=== PATIENT | female | born 1955 | race Caucasian/White ===

== ENCOUNTER 2022-01-10 08:37 | Outpatient (CLI) | payer BC, SELFPAY ==
--- NOTE | ~2022-01-10 | MM_ITS ---
EXAMINATION: MM screening ian BI w ange HISTORY: Screening TECHNIQUE: Craniocaudal and mediolateral oblique 3-D tomosynthesis images were obtained and synthetic 2-D images were generated. CAD analysis was submitted and interpreted. COMPARISON: No prior mammogram is available for comparison at this institution. BREAST PARENCHYMAL COMPOSITION: There are scattered areas of fibroglandular density. FINDINGS: There is a focal asymmetry laterally in the left breast on CC view, not recognized on MLO v iew. There are no suspicious masses, calcifications or architectural distortion in the right breast t o suggest malignancy. IMPRESSION: 1. Focal asymmetry of the left breast laterally on CC view. 2. Additional mammographic views and possible breast ultrasound are recommended. BI-RADS Category 0: Incomplete: Needs additional imaging evaluation. Reviewed, dictated and finalized at location A. IMPRESSION: 1. Focal asymmetry of the left breast laterally on CC view. 2. Additional mammographic views and possible breast ultrasound are recommended . BI-RADS Category 0: Incomplete: Needs additional imaging evaluation.
== END 2022-01-10 08:38 | disposition home or self-care (01) ==
PROVIDERS: PCP Internal Medicine; Visit Provider Internal Medicine
DX: Z12.31 Encounter for screening mammogram for malignant neoplasm of breast (principal); R92.8 Other abnormal and inconclusive findings on diagnostic imaging of breast
CPT/HCPCS: 77063; 77067

== ENCOUNTER 2022-07-03 12:31 | Outpatient (CLI) | payer MEDICARE, BC, OTHER, SELFPAY ==
--- NOTE | ~2022-07-03 | XR_ITS ---
AP and lateral views of the right hip Clinical history: Pain Findings: No acute fracture or dislocation is seen. Osseous alignment is anatomic. Right hip joint sp cal is preserved. Right SI joint unremarkable. Soft tissues are unremarkable. Impression: No significant abnormality is seen. Reviewed, dictated and finalized at [facility]. [employer]BILE [employer]IM INST[employer]ER Impression: No significant abnormality is seen.
== END 2022-07-03 12:32 | disposition home or self-care (01) ==
PROVIDERS: PCP Internal Medicine; Visit Provider Internal Medicine
DX: M25.551 Pain in right hip (principal)
CPT/HCPCS: 73502

== ENCOUNTER 2022-08-08 13:23 | Outpatient (RCR) | payer MEDICARE, OTHER, SELFPAY ==
--- NOTE | 2022-08-08 15:15 | PTOPEVDC ---
Assessment and note entered by Migue Singh, PT Thank you for referring Cary Salvador to [facility].? An evaluation has been completed. No further treatment is needed. Evaluation Information Diagnosis Sciatica R side Onset 07/01/22 Subjective Information Patient reports waking up the day after Valeria last year and once rolling out of bed, being in immediate pain starting in the back and going down to the RLE. She was originally only able to get around in a wheelchair, but now is using a cane. She has received an X-ray of her hip and has a CT scheduled for her lumbar region tomorrow. ( Patient unable to do an MRI secondary to a pacemaker). The patient reports the doctor 2 rounds of muscle relaxers and 2 rounds of steroids without any significant change. Patient unable to sleep flat and now sleeps in a recliner although the back will still not let her sleep throughout the night. Along with pain she has numbness/tingling and weakness in the RLE all the way down to her toes. She uses IBU along with a heating pad for pain relief which is minimal. Patient reports unable to do much of anything without significant pain. Reported Pain Level Pain Score 6: Self Report Additional Pain Score Comments 10/10 at worst. Minimal relief Assessment PT Clinical Summary Cary is a 67 year old coming into the clinic for severe R sciatic pain along with back pain. At the time of evaluation patient appears to still be in a very acute stage of pain, with minimal pain relief from modalities and physical therapist unable to accomplish a full therapy evaluation. Patient made the recommendation to the patient to go to the CT scan and possibly injections or a chiropractic manipulation based on the results of the imaging. If patient's pain can diminish recommend another script for physical therapy, but at this time physical therapy's risk do not outweigh potential benefits based on limited ability to do exercises, manual therapy, or manual therapy. Not picked up for skilled physical therapy. Plan of Care PT Services Indicated No Treatment Frequency and not picked up for skilled physical therapy. Duration
== END 2022-10-22 11:23 | disposition home or self-care (01) ==
LOC: ANHPT 13:23
PROVIDERS: Visit Provider Internal Medicine
DX: M54.31 Sciatica, right side (principal)
CPT/HCPCS: 97140; 97161

== ENCOUNTER → 2022-08-09 12:13 | Outpatient (CLI) | payer MEDICARE, OTHER, SELFPAY ==
--- NOTE | ~2022-08-09 | CT_ITS ---
EXAMINATION: CT lumbar spine wo con DATE: 08/09/2022 12:46 INDICATION: Low back pain. Sciatica. TECHNIQUE: Computed tomography (CT) of the lumbar spine was performed without intravenous contrast. A utomated exposure control and iterative reconstruction technique were employed. The dose-length produ ct was 1059.14 mGy-cm. COMPARISON: None FINDINGS: There is 5 degrees dextrocurvature of thoracolumbar spine. Vertebral body heights are arslan l. There is mildly decreased disc height at L4-L5. The following disc levels are specifically discuss ed: L1-L2: The disc does not extend beyond the endplate margin. There is mild bilateral facet joint osteo arthritis. There is no neural foraminal stenosis. There is no central canal stenosis. L2-L3: The disc is bulging. There is mild bilateral facet joint osteoarthritis. There is mild bilater al neural foraminal stenosis. There is no central canal stenosis. L3-L4: The disc is bulging. There is mild bilateral facet joint osteoarthritis. There is mild bilater al neural foraminal stenosis. There is mild central canal stenosis. L4-L5: The disc is bulging with superimposed right subarticular zone extrusion. There is severe bilat eral facet joint osteoarthritis. There is mild right and moderate left neural foraminal stenosis. The re is mild central canal stenosis at the midline. There is severe stenosis of right lateral recess. L5-S1: The disc is bulging. There is severe bilateral facet joint osteoarthritis. There is mild bilat eral neural foraminal stenosis. There is no central canal stenosis. IMPRESSION: 1. Moderate spondylosis at L4-L5 and mild spondylosis at other levels. Reviewed, dictated and finalized at location A. WASHER
== END ==
PROVIDERS: PCP Internal Medicine; Visit Provider Internal Medicine
DX: M54.31 Sciatica, right side (principal); M47.816 Spondylosis without myelopathy or radiculopathy, lumbar region
CPT/HCPCS: 72131

== ENCOUNTER 2023-04-29 11:43 | Outpatient (CLI) | payer MEDICARE, OTHER, SELFPAY ==
--- NOTE | ~2023-04-29 | XR_ITS ---
XR wrist RT min 3V DATE: 04/29/2023 12:09 INDICATION: Right wrist pain TECHNIQUE: 4 views COMPARISON: None FINDINGS: There is joint space narrowing at the triscaphe joint and mild spurring at the first carpom etacarpal joint consistent with osteoarthritis at these 2 joints. There is mild osteoarthritis at the second metacarpophalangeal joint. No fracture or dislocation, periosteal reaction or bone destruction is detected. IMPRESSION: Osteoarthritis Reviewed, dictated and finalized at location A. IMPRESSION: Osteoarthritis
== END 2023-04-29 11:44 | disposition home or self-care (01) ==
PROVIDERS: PCP Internal Medicine; Visit Provider Internal Medicine
DX: M19.031 Primary osteoarthritis, right wrist (principal)
CPT/HCPCS: 73110

== ENCOUNTER 2023-08-18 09:18 | Outpatient (CLI) | payer MEDICARE, OTHER, SELFPAY ==
--- NOTE | ~2023-08-18 | MM_ITS ---
EXAMINATION: MM screening ian BI w ange HISTORY: Screening mammogram, family history of breast cancer in her sister. TECHNIQUE: Craniocaudal and mediolateral oblique 3-D tomosynthesis images were obtained and synthetic 2-D images were generated. CAD analysis was submitted and interpreted. COMPARISON: 01/10/2022, 06/06/2020, 04/16/2018 BREAST PARENCHYMAL COMPOSITION: There are scattered areas of fibroglandular density. FINDINGS: Scattered benign-appearing calcifications are present. No suspicious mass, calcification, o r architectural distortion are identified in either breast to suggest malignancy. There has been no s uspicious interval change. IMPRESSION: 1. No mammographic evidence of malignancy. 2. Recommend routine screening mammography in one year. BI-RADS Category 2: Benign finding(s). Reviewed, dictated and finalized at location A. [employer]
== END 2023-08-18 09:19 | disposition home or self-care (01) ==
LOC: ANHIMG 09:20
PROVIDERS: PCP Internal Medicine; Visit Provider Internal Medicine
DX: Z12.31 Encounter for screening mammogram for malignant neoplasm of breast (principal)
CPT/HCPCS: 77063; 77067

== ENCOUNTER 2023-11-07 10:17 | Outpatient (CLI) | payer MEDICARE, OTHER, SELFPAY ==
--- NOTE | 2023-11-11 11:10 | P.NEURO_ITS ---
Neurology EEG Report General Information Date of Study: 11/07/23 TEST eeg DIAGNOSIS syncope and collapse CONDITION OF RECORDING awake drowsy and sleep EEG NUMBER [id number] CLINICAL HISTORY patient reports she has had episodes of blacking out for years, got a pacemaker placed in about 30 years ago and it cut back on the episodes. But now she is having recurrent episodes about once a month. EEG DESCRIPTION Basic resting occipital frequency consists of low to medium voltage 8 to 10 hertz per 2nd alpha admixed with low-voltage 15 to 18 hertz per 2nd beta. Low- voltage beta activity seen intermittently during drowsiness admixed with waxing and waning posterior alpha rhythm. Bilateral symmetrical sleep activity seen with initial mixture of the alpha beta and theta activity evolving into bilateral symmetrical sleep spindles as well photic stimulation produced normal drive. Hyperventilation not done. Non paroxysmal. Nonfocal. Nonlateralizing. IMPRESSION Normal record.
== END 2023-11-07 10:18 | disposition home or self-care (01) ==
LOC: ANHNEURO 10:17
PROVIDERS: PCP Internal Medicine; Visit Provider Internal Medicine
DX: R55 Syncope and collapse (principal)
CPT/HCPCS: 95816

== ENCOUNTER 2024-11-18 09:44 | Outpatient (CLI) | payer MEDICARE, OTHER, SELFPAY ==
--- NOTE | ~2024-11-18 | XR_ITS ---
Lumbosacral Spine: AP and lateral views Clinical History: Pain Findings: The normal lordotic curve is maintained. The vertebral bodies and posterior elements are i ntact. The intervertebral disc spaces are preserved. There is moderate to advanced facet arthropathy from L4 through S1. The sacroiliac joints are normally outlined. Impression: Facet arthropathy at the lower lumbar spine, as detailed above. Reviewed, dictated and finalized at location . Impression: Facet arthropathy at the lower lumbar spine, as detailed above.
--- NOTE | ~2024-11-18 | XR_ITS ---
AP view of the pelvis and AP and lateral views of the left hip Clinical history: Pain Findings: No acute fracture or dislocation is seen. Osseous alignment is anatomic. Bilateral hip and SI joint spaces are preserved. Soft tissues are unremarkable. Impression: No significant abnormality is seen. Reviewed, dictated and finalized at [facility]. Impression: No significant abnormality is seen.
--- OUTSIDE RECORDS SUMMARY | 2024-11-18 09:53 | XMS_ITS | Clinical Summary ---
Author Organization [facility] Care Team Providers Care Factory Focus Technician Name Role Phone Unavailable Primary Care Provider Unavailabl e Social History Tobacco Use Types Packs/Day Years Used Date Smoking Tobacco: Never Assessed Comments Unknown Sex and Gender Information Value Date Recorded Sex Assigned at Not on file Legal Sex Female 9:55 AM [employer] Gender Identity Not on file Sexual Orientation Not on file Plan of Treatment Health Maintenance Due Date Last Done Comments DEXA Bone Density 1955 Hepatitis C Virus (HCV) Screening 1955 TdaP Immunization 1955 Colonoscopy 2002 Colorectal Cancer Screening 2002 Cologuard 2007 Immunochemical Fecal Occult Blood 2007 Mammogram 2007 Pneumococcal Immunization (50+ years) (1 of 1 - PCV) 2007 Zoster Immunization (1 of 2) 2007 Influenza Immunization (#1) 03/07/202408/2017, 05/12/2016, 06/22/2015, Additional history exists SARS-COV-2 Immunization ( season) 2024 Respiratory Syncytial Virus (RSV) Immunization (Adult) (1 - 1-dose 75+ series) 2032 Hepatitis B Immunization Aged Out No longer eligible based on patient's age to complete this topic Meningococcal Immunization (ACWY) Aged Out No longer eligible based on patient's age to complete this topic Rotavirus Immunization Aged Out No lo nger eligible based on patient's age to complete this topic
--- OUTSIDE RECORDS SUMMARY | 2024-11-18 09:53 | XMS_ITS | Clinical Summary ---
Author Organization [facility] Address [address] [place] [address] Care Team Providers Care Chief Psychology Name Role Phone Radha Burnham MD Primary Care Provider [phone] Source Comments [facility],non-owned Affiliates and Associated Physician Practices is amultiple site organization consisting of ambulatory clinics and hospital sitesin [place], [place], [place] and [place]. This disclosure is being madepursuant to the Care Everywhere program and may not contain all information available regarding this patient. Last updated 18.[facility] Allergies Active Allergy Reactions Criticality Noted Date Comments Penicillins 04/29/2016 Medications * Be aware that medications may not be up to date on this document. Alwaysverify current medications with the patient. rosuvastatin (CRESTOR) 40 MG tablet Take 1 (one) tablet by mouth once daily Active vitamin D3-cholecalcife rol (CHOLECACIFEROL ) 1000 UNITS tablet Take 1 (one) tablet by mouth once daily Active aspirin (ASPIRIN) 81 MG tablet Take 1 tablet by mouth once daily 100 tablet 4 9 Active buPROPion SR 12hr (WELLBUTRIN-SR) 150 MG tablet Take 1 (one) tablet by mouth 2 times daily 0 9 Active citalopram (CELEXA) 10 MG tablet Take 1 (one) tablet by mouth once daily 3 9 Active omeprazole (PRILOSEC) 20 MG capsuleIndicati ons:Essential hypertension,Mi xed hyperlipidemia, Vasovagal syncope,S/P CABG x 2,CAD in [place] artery,Abnormal stress test Take 1 (one) capsule by mouth once daily 30 capsule 5 0 Active metoprolol tartrate IR (Lopressor) 50 MG tabletIndicatio ns:Essential hypertension,S/ P CABG x 2,CAD in [place] artery Take 1 tablet by mouth twice daily 180 tablet 5 Active lisinopril (Prinivil; Zestril) 10 MG tablet Take 1 (one) tablet by mouth once daily 90 tablet 3 5 Active levETIRAcetam (Keppra) 500 MG tablet Take 1 (one) tablet by mouth 2 times daily Active lisinopril (Prinivil; Zestril) 10 MG tablet Take 1 tablet by mouth once daily 30 tablet 5 10/29/19 25 Discontinu ed(Reorder ) Active Problems Problem Noted Date Diagnosed Date Pacemaker end of life 12/19/2022 SSS (sick sinus syndrome) 05/24/2022 Cardiac pacemaker in situ 05/24/2022 Syncope 10/27/2020 Assessment & Plan (05/11/2021 11:40 AM CDT): Unremarkable ECHO in October. Pacemaker check today unremarkable. Syncope likely d/t dehydration/orthostatic episodes Increase water intake Carefully change positions (let feet dangle, stand for a few seconds before ambulating) Wear compression stockings. LUO (dyspnea on exertion) 10/27/2020 Chest pain, unspecified 10/27/2020 S/P CABG x 2 11/02/2018 Vasovagal syncope 02/20/2018 Hypertension 05/22/2016 Assessment & Plan (05/11/2021 11:44 AM CDT): Blood pressure good today at 116/80 pulse 82 Continue home monitoring, 1 x per week okay, 30 minutes after taking medication and after resting for 10 minutes. Neutral position, feet flat on floor. 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 Healthy eating and activity discussed. CAD in [place] artery Abnormal stress test Resolved Problems Problem Noted Date Diagnosed Date Resolved Date Primary osteoarthritis of right knee 04/02/2019 Encounters Date Type Department Care Team Description 11/11/2024 11:00 AM CDT Office Visit [facility] - Cardiology [address] [facility], [address] [address] Tomas Benavides MD Vasovagal syncope (Primary Dx) 11/11/2024 Travel 10/28/2024 Refill [facility] - Cardiology [address] [place] [address], [address] [phone] Cody Perez RN MEDICATION REFILL 10/27/2024 Telephone [facility] - Cardiology [address] [place] [address], [address] [phone] Yves Burks Refill Request 10/12/2024 Refill [facility] - Cardiology [address] [place] [address], [address] [address] Nubia Cedillo APRN-WATER MAIN INSTALLER HELPER Refill Request 09/16/2024 Refill [facility] - Cardiology [address] [place] [address], [address] [address] Nubia Cedillo APRN-WATER MAIN INSTALLER HELPER Refill Request 09/13/2024 10:40 AM CDT Office Visit [facility] - Cardiology [address] [place] [address], [address] [phone] Josefina Carrillo MD CAD in [place] artery (Primary Dx); Cardiac pacemaker in situ; S/P CABG x 2; Primary hypertension; Mixed hyperlipidemia; Syncope, unspecified syncope type 09/13/2024 9:00 AM CDT Ancillary Procedure [facility] - Echosonography [address] [place] [address], [address] [phone] Stable angina pectoris 09/13/2024 Travel 09/10/2024 Refill [facility] - Cardiology [address] [facility], [place] [address] [place] [phone] Nubia Cedillo APRN-WATER MAIN INSTALLER HELPER Refill Request 09/07/2024 1:10 AM MANAGER TRANSFUSION Clinical Support [facility] - Cardiology [address] [facility], [place] [address] [place] [address] SSS (sick sinus syndrome) from Last 3 Months Immunizations Immunization Administration Dates Next Due INFLUENZA VACCINE, TRIV. (AF LURIA, FLUZONE TRIVALENT; 6MO+) (IIV3) 05/27/2013,05/26/2013 FLU VACCINE QUAD IIV4 SPLIT 0.25 ML IM 05/12/2016 FLU VACCINE TRI IIV3 SPLIT P F IM (FLUVIRIN) 05/03/2014 INFLUENZA VACCINE 04/06/2018 INFLUENZA VACCINE, QUADR. (F LUZONE; FLULAVAL; FLUARIX; AFLURIA QUADRIVALENT; 6MO+), 0.5 ML (IIV4) 04/02/2019,04/07/2018,05/21/2016,2014 Family History Medical History Relation Name Comments Hypertension Father Hypertension Mother Hypertension Sister Relation Name Status Comments Father Mother Sister Social History Tobacco Use Types Packs/Day Years Used Date Smoking Tobacco: Never Smokeless Tobacco: Former Tobacco Cessation:Counseling Given: Not Answered Alcohol Use Standard Drinks/Week Comments No 0 (1 standard drink = 0.6 oz pur e alcohol) Comments No Sex and Gender Information Value Date Recorded Sex Assigned at Not on file Legal Sex Female 4:04 PM CDT Gender Identity Not on file Sexual Orientation Not on file Last Filed Vital Signs Vital Sign Reading Time Taken Comments Blood Pressure 144/82 11/11/2024 11:09 AM CDT Pulse 80 11/11/2024 11:09 AM CDT Temperature 36.6 C (97.8 F) 01/29/2023 1:11 PM CDT Respiratory Rate 18 07/19/2024 3:36 PM MANAGER TRANSFUSION Oxygen Saturation 97% 11/11/2024 11:09 AM CDT Inhaled Oxygen Concentration 40% 11/02/2018 1 :13 PM CDT Weight 114.3 kg (252 lb) 11/11/2024 11:09 AM CDT Height 167.6 cm (5' 6 ) 11/11/2024 11:09 AM CDT Body Mass Index 40.67 11/11/2024 11:09 AM CDT Plan of Treatment Upcoming Encounters Date Type Department Care Team (Late st Contact Info) Description 12/07/2024 1:10 AM CDT Clinical Support [facility] - Cardiology [address] [facility], [address] [address] 03/08/2025 1:10 AM CDT Clinical Support [facility] - Cardiology [address] [facility], [address] [address] 09/12/2025 10:20 AM CDT Office Visit [facility] - Cardiology [address] [facility], [address] [address] Josefina Carrillo MD [address] [facility] [address] [place] [address] 11/14/2025 1:00 PM CDT Office Visit [facility] - Cardiology [address] [facility], [address] [phone] Tomas Benavides MD [address] [facility], [address] [address] Health Maintenance Due Date Last Done Comments BONE DENSITY TESTING 1955 COLOGUARD (AGES 45-75) - COLON CA SCREENING 1955 COLON MONITORING 1955 COLONOSCOPY - COLON CA SCREENING 1955 CT COLONOGRAPHY - COLON CA SCREENING 1955 Colorectal Cancer Screening 1955 FIT - COLON CA SCREENING 1955 FLEX SIG - COLON CA SCREENING 1955 MAMMOGRAM 1955 MEDICARE AWV 12 MONTHS 1955 HEPATITIS C SCREENING 06/07/1975 DTAP/TDAP/TD VACCINES (1 - Tdap) 1976 PNEUMOCOCCAL VACCINE 50+ (1 of 2 - PCV) 1976 ZOSTER VACCINE (1 of 2) 2007 Respiratory Syncytial Virus (RSV) Vaccine Pt: or over 60 yrs (1 - Risk 60-74 years 1-dose series) 2017 COVID-19 VACCINE (4 - 2023- season) 2024 01/14/2022, 06/20/2021, 09/12/2020 DEPRESSION SCREENING 07/07/2024 SCREENING FOR DIABETES 01/21/2026 3, 11/06/2018, 11/06/2018, Additional history exists INFLUENZA VACCINE Completed 03/24/2024, , 05/30/2021, Additional history exists HEPATITIS B VACCINE Aged Out No longe r eligible based on patient's age to complete this topic HIB VACCINE Aged Out No longer eligi ble based on patient's age to complete this topic HPV VACCINE Aged Out No longer eligi ble based on patient's age to complete this topic MENINGOCOCCAL (Group B) VACCINE SHARED DECISION-MAKING Aged Out No longer eligible based on patient's age to complete this topic MENINGOCOCCAL GROUPS A/C/Y/W VACCINE Aged Out No longer eligible based on patient's age to complete this topic Medical Devices Implanted Type Area Grain Operator Device Identifier Shelf Expiration Date Model / Serial / Lot Cmpnt Fem Kn Rt 6 Crcte Rtn Legion Pope Implanted:Qty: 1 on 05/20/2016 by Neil Ibrahim MD at [facility] Right: Knee [employer] 07/18/2025 [id number] / / [id number] Ins Tib 5-6 9mm Kn Xlpe Cr Hi Flxn Implanted:Qty: 1 on 05/20/2016 by Neil Ibrahim MD at [facility] Right: Knee [employer] 01/08/2026 [id number] / / [id number] Legion Por Pope Tib Base R Sz 5 Implanted:Qty: 1 on 05/20/2016 by Neil Ibrahim MD at [facility] Right: Knee [employer] 03/25/2025 [id number] / / [id number] Stem Tib 55mm 18mm Prfx Mtphsl Kn Implanted:Qty: 1 on 05/20/2016 by Neil Ibrahim MD at [facility] Right: Knee [employer] 02/06/2026 [id number] / / [id number] Screw Bsplt 20mm 6.5mm Gns2 Kn Tib Por Implanted:Qty: 2 on 05/20/2016 by Neil Ibrahim MD at [facility] Right: Knee [employer] 11/10/2025 [id number] / / [id number] Screw Bsplt 30mm 6.5mm Gns2 Kn Tib Por Implanted:Qty: 1 on 05/20/2016 by Neil Ibrahim MD at [facility] Right: Knee [employer] 11/05/2025 [id number] / / [id number] Screw Bsplt 30mm 6.5mm Gns2 Kn Tib Por Implanted:Qty: 1 on 05/20/2016 by Neil Ibrahim MD at [facility] Right: Knee [employer] 08/18/2025 [id number] / / [id number] Hardik Basic Rafi Excludes Agc Kn Implanted:Qty: 1 on 05/20/2016 by Neil Ibrahim MD at [facility] Orthopaedics BILL ONLY BASIC RAFI EXCLUDES AGC KN SNOR / / Pacemkr Emily Wire[employer] Crd - [id number] Implanted:Qty: 1 on 01/21/2023 by Tomas Benavides MD at [facility] [employer] 06/03/2024 [id number] / [id number] / [id number] Procedures Procedure Name Priority Date/Time Associated Diagnosis Comments ND PM/ICD REMOTE TECH SERV Routine 09/13/2024 11:30 PM CDT SSS (sick sinus syndrome) ND PM DEVICE INTERROGATE REMOTE Routine 09/13/2024 11:30 PM CDT SSS (sick sinus syndrome) ECHO COMPLETE W CONTRAST Routine 09/13/2024 9:49 AM CDT Stable angina pectoris CARDIAC PROCEDURE ORDER 09/05/2024 BASIC METABOLIC PANEL (CALCIUM TOTAL) Routine 01/21/2023 6:24 AM CDT Pacemaker end of life SSS (sick sinus syndrome) from Last 3 Months or Most Recently Relevant to Health Maintenance Results * ND PM DEVICE INTERROGATE REMOTE, ND PM/ICD REMOTE TECH SERV (09/13/2024 11:30 PM CDT) Narrative Edita Scott MD - 09/13/2024 11:30 PM CDT Edita Scott MD 09/13/2024 11:32 PM Remote Interrogation: Pertinent Findings: Device function within normal limits. No events or therapy delivered. Edita Scott MD Cardiac Electrophysiology us Edita Scott MD PROCEDURE/MINOR SURGICAL ORDERAB LES Final Result * ECHO COMPLETE W CONTRAST (09/13/2024 9:49 AM CDT) IVSd 2D 0.798 cm SSM CV FUJ I PACS LVIDd 5.086 cm SSM CV FUJ I PACS LVIDs 3.03 cm SSM CV FUJ I PACS LVOT diam 1.953 cm SSM CV FUJ I PACS LVPWd 0.753 cm SSM CV FUJ I PACS LV biplane EF 66.018 % SSM CV FUJI PACS LV A2C EF 60.865 % SSM CV FUJ I PACS LV A4C EF 71.485 % SSM CV FUJ I PACS LV EDV A2C 56.166 ml SSM CV FU JI PACS LV EDV A4C 79.099 ml SSM CV FU JI PACS LV ESV A2C 21.981 ml SSM CV FU JI PACS LV ESV A4C 22.555 ml SSM CV FU JI PACS LVOT pk grad 3.806 mmHg SSM CV FUJI PACS LVOT pk michel 97.543 cm/s SSM CV F UJI PACS LVOT VTI 18.949 cm SSM CV FUJ I PACS RVIDd 3.879 cm SSM CV FUJ I PACS RVOT pk michel 41.437 cm/s SSM CV F UJI PACS RVOT VTI 7.827 cm SSM CV FUJ I PACS AV area pk michel 1.713 cm SSM CV FUJI PACS AV area cont VTI 2.044 cm SSM CV FUJI PACS AV pk grad 11.648 mmHg SSM CV FU JI PACS AV mn grad 6.862 mmHg SSM CV FU JI PACS AV pk michel 170.645 cm/s SSM CV FUJ I PACS AV VTI 27.783 cm SSM CV FUJ I PACS MV A pk michel 91.526 cm/s SSM CV F UJI PACS MV E pk michel 88.885 cm/s SSM CV F UJI PACS MV mn grad 2.266 mmHg SSM CV FU JI PACS MV VTI 20.67 cm SSM CV FUJ I PACS PV pk michel 98.24 cm/s SSM CV FUJ I PACS PV VTI 21.377 cm SSM CV FUJ I PACS TR pk michel 285.764 cm/s SSM CV FUJ I PACS Ascending aorta 3.529 cm SSM CV FUJI PACS AV area index 0.861 cm /m SSM CV FUJI PACS Dimensionless Index 0.682 unitless SSM CV FUJI PACS Myocardial strain charge 2 unitless SSM CV FUJI PACS Anatomical Region Laterality Modality Ultrasound 09/13/2024 7:59 AM CDT Narrative 09/13/2024 11:19 AM CDT Summary * The left ventricle is normal in size. * Left ventricular segmental wall motion is normal. * Left ventricular systolic function is normal with an estimated ejection fraction of 66% by biplane method of disks. * The left ventricular diastolic function is normal. * Right ventricle is mildly dilated with mildly reduced systolic function. * A device wire is seen in the right atrium. * There is moderate to severe tricuspid valve regurgitation. * The pulmonary artery systolic pressure is mildly elevated, 36 mmHg. Patient Info Name: Cary Salvador Age: 69 years : 1955 Gender: Female Ht: 66 in Wt: 254 lb BSA: 2.37 m2 HR: 96 bpm BP: 119 / 82 mmHg Exam Date: 09/13/2024 7:59 AM Patient Status: O Study Site: [facility] Primary Location: [facility] Exam Type: ECHO COMPLETE W CONTRAST Indications I20.89 - Stable angina pectoris (HCC) Procedure(s) * A complete 2D, color Doppler, spectral Doppler, and M-Mode transthoracic echocardiogram was performed. * An Ultrasound Enhancing Agent (UEA) was utilized to enhance endocardial definition and opacify the left ventricle. Contrast/Agitated Saline Contrast / Saline: Definity Amount: 0.50 ml Staff Referring Physician: Josefina Carrillo Ordering Provider: Josefina Carrillo Dental Therapist: Patricia Paredes Left Ventricle The left ventricular mass is normal. The left ventricle is normal in size. Left ventricular segmental wall motion is normal. Left ventricular systolic function is normal with an estimated ejection fraction of 66% by biplane method of disks. The left ventricular diastolic function is normal. Right Ventricle The right ventricle is mildly dilated. Right ventricular systolic function is mildly reduced. A device wire is seen in the right ventricle. Left Atrium The left atrium is normal in size. Right Atrium The right atrium is normal in size. A device wire is seen in the right atrium. Atrial Septum Intact interatrial septum visualized by 2D and color Doppler imaging. Aortic Valve The aortic valve is trileaflet. There is no aortic valve stenosis. There is no aortic valve regurgitation. Pulmonic Valve The pulmonic valve is not well visualized. There is no pulmonic valve stenosis. There is mild pulmonic regurgitation. Mitral Valve The mitral valve is normal. There is no mitral valve stenosis. There is mild mitral valve regurgitation. Tricuspid Valve The tricuspid valve is normal. There is moderate to severe tricuspid valve regurgitation. The pulmonary artery systolic pressure is mildly elevated, 36 mmHg. Inferior Vena Cava The inferior vena cava is normal in size (< 2.1 cm). There is > 50% collapse of the IVC upon inspiration with an estimated right atrial pressure of 3 mmHg. Pericardium/Pleural There is no pericardial effusion. Aorta The ascending aorta is normal in size measuring 3.5 cm with an index of 1.5 cm/m2. The aortic root at the sinus of Valsalva is normal in size. The ascending aorta is normal in size. Measurements Left Ventricular Outflow Tract Name Value Normal LVOT 2D LVOT Diameter 2.0 cm LVOT Area 3.0 cm2 LVOT Doppler LVOT Peak Velocity 1.0 m/s LVOT Peak Gradient 4 mmHg LVOT Mean Velocity 70.21 cm/s LVOT Mean Gradient 2 mmHg LVOT VTI 18.9 cm LVOT VTI/AV VTI Ratio 0.7 LVOT Stroke Volume 57 ml LVOT Stroke Volume Index 24 ml/m2 35-58 LVOT CO 5.5 l/min LVOT CI 2.3 l/min/m2 Pulmonic Valve Name Value Normal RVOT Doppler RVOT Peak Velocity 0.4 m/s RVOT Peak Gradient 1 mmHg RVOT Mean Gradient 0 mmHg PV Doppler PV Peak Velocity 1.0 m/s PV Peak Gradient 4 mmHg PV Mean Gradient 2 mmHg PV Accel Time 176.47 ms Mitral Valve Name Value Normal MV Doppler MV Peak Gradient 4 mmHg MV Mean Gradient 2 mmHg MV DI (VTI) 1.09 MV PHT 79 ms MV Area (PHT) 2.79 cm2 4.00-5.00 MV Area (Cont Eq VTI) 2.75 cm2 MV Diastolic Function MV E Peak Velocity 0.9 m/sec MV A Peak Velocity 0.9 m/sec MV E/A 1.0 MV Decel Time (PW) 182 ms MV A Wave Duration 114 ms Tricuspid Valve Name Value Normal TV Regurgitation Doppler TR Peak Velocity 2.9 m/s TR Peak Gradient 33 mmHg Estimated PAP/RSVP RA Pressure 3 mmHg <=5 PA Systolic Pressure 36 mmHg <35 RV Systolic Pressure 36 mmHg <36 Pulmonary Vessels Name Value Normal Pulmonary Veins Pulm Vein Peak Systolic Velocity 56.4 cm/s Pulm Vein Peak Diastolic Velocity 42.1 cm/s Pulm Vein S/D Velocity Ratio 1 Pulm Vein Ar Velocity 23.8 cm/s Pulm Vein Ar Dur - MV A Dur -17 ms Aorta Name Value Normal Ascending Aorta Asc Ao Diameter 3.5 cm 1.9-3.5 Asc Ao Diameter Index 1.5 cm/m2 1.0-2.2 Aortic Valve Name Value Normal AV Doppler AV Peak Velocity 1.71 m/s AV Peak Gradient 12 mmHg AV Mean Gradient 7 mmHg AV VTI 28 cm AV Area (Cont Eq VTI) 2.04 cm2 >=2.00 AV Area (Cont Eq Michel) 1.71 cm2 AV DI (VTI) 0.68 AV DI (Michel) 0.57 AV Regurgitation 2D LVOT Area 3.00 cm2 Ventricles Name Value Normal LV Dimensions 2D/MM IVS Diastolic Thickness (2D) 0.8 cm 0.6-0.9 LVID Diastole (2D) 5.1 cm 3.8-5.2 LVPW Diastolic Thickness (2D) 0.8 cm 0.6-0.9 LVID Systole (2D) 3.0 cm 2.2-3.5 LV Mass (2D Cubed) 134 g 67-162 LV Mass Index (2D Cubed) 57 g/m2 43-95 Relative Wall Thickness (2D) 0.30 <=0.42 LV Fractional Shortening/Ejection Fraction 2D/MM LV Fractional Shortening (2D) 40 % 27-45 LV EF (2D Teicholz) 71 % 54-74 LV Diastolic Volume (4C MOD) 79 ml LV EF (4C MOD) 71 % LV Diastolic Volume (2C MOD) 56 ml LV EF (2C MOD) 61 % LV Diastolic Volume (BP MOD) 68 ml 46-106 LV Diastolic Volume Index (BP MOD) 29 ml/m2 29-61 LV Systolic Volume (BP MOD) 23 ml 14-42 LV Systolic Volume Index (BP MOD) 10 ml/m2 8-24 LV EF (BP MOD) 66 % 54-74 LV Diastolic Length (4C) 7.6 cm LV Systolic Length (4C) 5.9 cm LV Stroke Volume (4C MOD) 57 ml RV Dimensions 2D/MM RVID Diastole (2D) 3.9 cm 2.5-3.5 Report Signatures Finalized by Natalia Luque MD on 09/13/2024 11:19 AM Procedure Note Natalia Luque MD - 09/13/2024 Summary * The left ventricle is normal in size. * Left ventricular segmental wall motion is normal. * Left ventricular systolic function is normal with an estimatedejection fraction of 66% by biplane method of disks. * The left ventricular diastolic function is normal. * Right ventricle is mildly dilated with mildly reduced systolicfunction. * A device wire is seen in the right atrium. * There is moderate to severe tricuspid valve regurgitation. * The pulmonary artery systolic pressure is mildly elevated, 36 mmHg. Patient Info Name: Cary Salvador Age: 69 years : 1955 Gender: Female Ht: 66 in Wt: 254 lb BSA: 2.37 m2 HR: 96 bpm BP: 119 / 82 mmHg Exam Date: 09/13/2024 7:59 AM Patient Status: O Study Site: [facility] Primary Location: [facility] Info Exam Type: ECHO COMPLETE W CONTRAST Indications I20.89 - Stable angina pectoris (HCC) Procedure(s) * A complete 2D, color Doppler, spectral Doppler, and M-Modetransthoracic echocardiogram was performed. * An Ultrasound Enhancing Agent (UEA) was utilized to enhanceendocardial definition and opacify the left ventricle. Contrast/Agitated Saline Contrast / Saline: Definity Amount: 0.50 ml Staff Referring Physician: Josefina Carrillo Ordering Provider: Josefina Carrillo Dental Therapist: Patricia Paredes Left Ventricle The left ventricular mass is normal. The left ventricle is normal insize. Left ventricular segmental wall motion is normal. Left ventricularsystolic function is normal with an estimated ejection fraction of 66% by biplane method of disks. The left ventricular diastolic function is normal. Right Ventricle The right ventricle is mildly dilated. Right ventricular systolicfunction is mildly reduced. A device wire is seen in the right ventricle. Left Atrium The left atrium is normal in size. Right Atrium The right atrium is normal in size. A device wire is seen in the right atrium. Atrial Septum Intact interatrial septum visualized by 2D and color Doppler imaging. Aortic Valve The aortic valve is trileaflet. There is no aortic valve stenosis. Thereis no aortic valve regurgitation. Pulmonic Valve The pulmonic valve is not well visualized. There is no pulmonic valve stenosis. There is mild pulmonic regurgitation. Mitral Valve The mitral valve is normal. There is no mitral valve stenosis. There ismild mitral valve regurgitation. Tricuspid Valve The tricuspid valve is normal. There is moderate to severe tricuspidvalve regurgitation. The pulmonary artery systolic pressure is mildly elevated,36 mmHg. Inferior Vena Cava The inferior vena cava is normal in size (< 2.1 cm). There is > 50%collapse of the IVC upon inspiration with an estimated right atrial pressure of 3mmHg. Pericardium/Pleural [id number]|2024-11-18 09:53:00|2024-11-18 09:53:00|XMS_ITS|BKG DAEMON|External Medical Summaries|[id number]|" Data Portability Created on: November 18, 2024 Cary Salvador .[id number] : 1955 Sex: Female Author Organization [facility] Address [address] [facility] [place] [address] Care Team Providers Care Chief Psychology Name Role Phone BURNHAM RADHA Primary Care Provider Assessment Encounter Date Assessment Date Assessment LastModified by Organization Details LastModified Time 10/28/2023 10/28/2023 Syncope I would like for her to wear compression socks we will order an EEG and she will see neurology just to make sure there is not anything else going on dyslipidemia rosuvastatin CAD secondary preventative measures aspirin statin beta-catrachita inhibitor anxiety and depression bupropion and citalopram she cannot be taken off of those just yet she is doing well she will follow-up with me in 3 to 4 months. We will get her old records so we can check out immunizations and screenings [email or web address] Not available 10/28/2023 22:46:23 03/24/2024 03/24/2024 she does have an appointment with Neurology. We will get a flu shot today. Blood work today. CAD anxiety GERD hyperlipidemia syncope have been discussed all questions have been answered to patient's satisfaction follow up Not available 04/03/2024 14:55:52 07/21/2024 07/21/2024 for her recurren t syncope she is going to see Neurology. Healthy lifestyle care instructions. Blood work. Continue current therapy. Follow up 4 months. She has been having syncopal episodes for several years [email or web address] Not available 07/25/2024 16:00:58 Plan of Treatment Reminders Order Date Submit Date Provider Last Modified By Organization Details Last Modified Time Details Appointments ANY 15 2024 10:15A Heriberto Burnham MD Not available Not available Not available Lab CBC w/ auto diff 2024 025 CORNELIUSLETICIA Morales, [address], [address], [place], [address], 07/22/2024 08:25:23 CMP, serum or plasma 2024 025 CORNELIUS Morales, [address], [address], [place], [address], 07/22/2024 08:25:22 lipid panel, serum 2024 025 CORNELIUS Morales, [address], [address], [place], [address], 07/22/2024 08:25:21 lipid panel, serum 2023 024 CORNELIUS Morales, [address], [address], [place], [address], 03/25/2024 09:15:43 CMP, serum or plasma 2023 024 CORNELIUS Morales, [address], [address], [place], [address], 03/25/2024 09:15:43 CBC w/ auto diff 2023 024 CORNELIUS Morales, [address], [address], [place], [address], 03/25/2024 09:15:44 CBC w/ auto diff 2023 024 CORNELIUS MORALES, [address] [place], [place] [address]chente Yariel, [facility] [address], [place], [address], 10/29/2023 06:17:47 lipid panel, serum 2023 024 CORNELIUS MORALES, [address] [place], [place] [address]chente Saldivar, [facility] [address], [place], [address], 10/29/2023 06:17:45 CMP, serum or plasma 2023 024 CORNELIUS MORALES, [address] [place], [place] [address]chente Saldivar, [facility] [address], [place], [address], 10/29/2023 06:17:45 magnesium , serum or plasma 2023 024 CORNELIUS MORALES, [address] [place] [address], [facility] [address], [place], [address], 10/29/2023 06:17:[address] referral - Please call pt to schedule apt. 2023 024 CORNELIUS Cuevas MD, [address] [place] [address] , [address], [place], [address], 08/05/2024 11:40:06 Procedures None recorded. Surgeries None recorded. Imaging electroen cephalogr am 2023 024 [facility] ([facility]), [address], [place], [address], 11/11/2023 13:25:07 Medication Orders Zepbound 2.5 mg/0.5 mL subcutane ous pen injector [address], [address], [place], [address], 03/24/2024 11:58:26 Zepbound 5 mg/0.5 mL subcutane ous pen injector [address], [address], [place], [address], 03/24/2024 11:58:26 rosuvasta tin 40 mg tablet [address], [address], [place], [address], 10/28/2023 11:32:22 bupropion HCl SR 150 mg tablet,12 hr sustained -release [address], [address], [place], [address], 10/28/2023 11:32:22 citalopra m 20 mg tablet [address], [address], [place], [address], 10/28/2023 11:32:22 Patient TargetsNo targets recorded. Patient Instructions Encounter Date Encounter Id Patient Instructions Last Modified By Organization Details Last Modified Time 03/24/2024 [id number] A healthy lifestyle: care instructions [id number] Not available 03/24/2024 11:58:26 07/21/2024 [id number] A healthy lifestyle: care instructions Not available 07/21/2024 13:31:00 Reason for Referral Neurologist Referral for Syn cope Please call pt to schedule apt. Referring Physician: Radha Burnham, Internal Medicine, Encounter Date: 10/28/2023 Results Created Date Observation Date Name Description Value Unit Range Abnormal Flag Note LastModifiedBy Organization Detail LastModifiedTime 10/28/19 24 10/29/2023 LIPID PANEL cholesterol, total 124 mg/dL 100-19 9 Not Available [facility] Department [address] [place] [address], [address], 10/29/2023 06:17:45 10/28/19 24 10/29/2023 LIPID PANEL triglyceride s 137 mg/dL 0-149 Not Available [facility] Department [address] [place] [address], [address], 10/29/2023 06:17:45 10/28/19 24 10/29/2023 LIPID PANEL HDL cholesterol 44 mg/dL 40-999 Not Available [facility] Department [address] [place] [address], [address], 10/29/2023 06:17:45 10/28/19 24 10/29/2023 LIPID PANEL VLDL cholesterol kiet 27 mg/dL 5-40 Not Available [facility] Department [address] [place] [address], [address], 10/29/2023 06:17:45 10/28/19 24 10/29/2023 LIPID PANEL LDL chol calc ([facility]) 72 mg/dL 0-99 Not Available [facility] Department [address] [place] [address], [address], 10/29/2023 06:17:45 10/28/19 24 10/29/2023 COMP. METAB OLIC PANEL (14) glucose 92 mg/dL 70-99 Not Available [facility] Department [address] [place] [address], [address], 10/29/2023 06:17:45 10/28/19 24 10/29/2023 COMP. METAB OLIC PANEL (14) BUN 9 mg/dL 8-27 Not Available [facility] Department [address] [place], [address], 10/29/2023 06:17:45 10/28/19 24 10/29/2023 COMP. METAB OLIC PANEL (14) creatinine 0.81 mg/dL 0.76-1 .27 Not Available [facility] Department [address] [place] [address], [address], 10/29/2023 06:17:45 10/28/19 24 10/29/2023 COMP. METAB OLIC PANEL (14) eGFR 80 >=60 Units for eGFR value s are mL/mi n/1.7 3 The eGFR Calcu latio n has not been valid ated for patie nts under the age of 18. If test resul ts are displ ayed for a patie nt under the age of 18, disre shantanu that value . Not Available [facility] Department [address] [place] [address], [address], 10/29/2023 06:17:45 10/28/19 24 10/29/2023 COMP. METAB OLIC PANEL (14) BUN/creatini ne ratio 11 10-28 Not Available [facility] Department [address] [place] [address], [address], 10/29/2023 06:17:45 10/28/19 24 10/29/2023 COMP. METAB OLIC PANEL (14) sodium 140 mmol/ L 134-14 4 Not Available [facility] Department [address] [place] [address], [address], 10/29/2023 06:17:45 10/28/19 24 10/29/2023 COMP. METAB OLIC PANEL (14) potassium 5.0 mmol/ L 3.5-5. 2 Not Available [facility] Department [address] [place] [address], [address], 10/29/2023 06:17:45 10/28/19 24 10/29/2023 COMP. METAB OLIC PANEL (14) chloride 101 mmol/ L 96-106 Not Available [facility] [address] [place], [address], 10/29/2023 06:17:45 10/28/19 24 10/29/2023 COMP. METAB OLIC PANEL (14) carbon dioxide, total 26 mmol/ L 20-29 Not Available [facility] Department [address] [place], [address], 10/29/2023 06:17:45 10/28/19 24 10/29/2023 COMP. METAB OLIC PANEL (14) calcium 9.7 mg/dL 8.7-10 .3 Not Available [facility] Department [address] [place], [address], 10/29/2023 06:17:45 10/28/19 24 10/29/2023 COMP. METAB OLIC PANEL (14) protein, total 7.1 g/dL 6.0-8. 5 Not Available [facility] Department [address] [place], [address], 10/29/2023 06:17:45 10/28/19 24 10/29/2023 COMP. METAB OLIC PANEL (14) albumin 4.1 g/dL 3.8-4. 8 Not Available [facility] Department [address] [place], [address], 10/29/2023 06:17:45 10/28/19 24 10/29/2023 COMP. METAB OLIC PANEL (14) globulin, total 3.0 g/dL 1.5-4. 5 Not Available [facility] Department [address] [place], [address], 10/29/2023 06:17:45 10/28/19 24 10/29/2023 COMP. METAB OLIC PANEL (14) A/G ratio 1.0 1.2-2. 2 below low normal Not Available [facility] Department [address] [place], [address], 10/29/2023 06:17:45 10/28/19 24 10/29/2023 COMP. METAB OLIC PANEL (14) bilirubin, total 0.3 mg/dL 0.0-1. 2 Not Available [facility] Department [address] [place] [address], [address], 10/29/2023 06:17:45 10/28/19 24 10/29/2023 COMP. METAB OLIC PANEL (14) alkaline phosphatase 69 IU/L 44-121 Not Available [facility] Department [address] [place] [address], [address], 10/29/2023 06:17:45 10/28/19 24 10/29/2023 COMP. METAB OLIC PANEL (14) AST (SGOT) 21 IU/L 0-40 Not Available [facility] Department [address] [place] [address], [address], 10/29/2023 06:17:45 10/28/19 24 10/29/2023 COMP. METAB OLIC PANEL (14) ALT (SGPT) 25 IU/L 0-32 Not Available [facility] Department [address] [place] [address], [address], 10/29/2023 06:17:45 10/28/19 24 10/29/2023 MAGNE SIUM magnesium 1.8 mg/L 1.6-2. 3 Not Available [facility] Department [address] [place] [address], [address], 10/29/2023 06:17:46 10/28/19 24 10/28/2023 CBC WITH DIFFE RENTI AL/PL ATELE T WBC 6.2 x10e3 /uL 3.4-10 .8 Not Available [facility] Department [address] [place] [address], [address], 10/29/2023 06:17:47 10/28/19 24 10/28/2023 CBC WITH DIFFE RENTI AL/PL ATELE T RBC 4.62 x10e6 /uL 3.77-5 .28 Not Available [facility] Department [address] [place], [address], 10/29/2023 06:17:47 10/28/19 24 10/28/2023 CBC WITH DIFFE RENTI AL/PL ATELE T hemoglobin 12.4 g/dL 11.1-1 5.9 Not Available [facility] Department [address] [place], [address], 10/29/2023 06:17:47 10/28/19 24 10/28/2023 CBC WITH DIFFE RENTI AL/PL ATELE T hematocrit 40.2 % 34.0-4 6.6 Not Available [facility] Department [address] [place], [address], 10/29/2023 06:17:47 10/28/19 24 10/28/2023 CBC WITH DIFFE RENTI AL/PL ATELE T MCV 87 fL 79-97 Not Available [facility] Department [address] [place], [address], 10/29/2023 06:17:47 10/28/19 24 10/28/2023 CBC WITH DIFFE RENTI AL/PL ATELE T MCH 26.8 pg 26.6-3 3.0 Not Available [facility] Department [address] [place], [address], 10/29/2023 06:17:47 10/28/19 24 10/28/2023 CBC WITH DIFFE RENTI AL/PL ATELE T MCHC 30.8 g/dL 31.5-3 5.7 below low normal Not Available [facility] Department [address] [place], [address], 10/29/2023 06:17:47 10/28/19 24 10/28/2023 CBC WITH DIFFE RENTI AL/PL ATELE T RDW 14.9 % 11.5-1 4.5 above high normal Not Available [facility] Department [address] [place], [address], 10/29/2023 06:17:47 10/28/19 24 10/28/2023 CBC WITH DIFFE RENTI AL/PL ATELE T platelets 350 x10e3 /uL 150-45 0 Not Available [facility] Department [address] [place], [address], 10/29/2023 06:17:47 10/28/19 24 10/28/2023 CBC WITH DIFFE RENTI AL/PL ATELE T neutrophils 52 % notest b. Not Available [facility] Department [address] [place] [address], [address], 10/29/2023 06:17:47 10/28/19 24 10/28/2023 CBC WITH DIFFE RENTI AL/PL ATELE T lymphs 35 % notest b. Not Available [facility] Department [address] [place] [address], [address], 10/29/2023 06:17:47 10/28/19 24 10/28/2023 CBC WITH DIFFE RENTI AL/PL ATELE T monocytes 9 % notest b. Not Available [facility] [address] [place], [address], 10/29/2023 06:17:47 10/28/19 24 10/28/2023 CBC WITH DIFFE RENTI AL/PL ATELE T eos 2 % notest b. Not Available [facility] Department [address] [place], [address], 10/29/2023 06:17:47 10/28/19 24 10/28/2023 CBC WITH DIFFE RENTI AL/PL ATELE T basos 2 % notest b. Not Available [facility] Department [address] [place], [address], 10/29/2023 06:17:47 10/28/19 24 10/28/2023 CBC WITH DIFFE RENTI AL/PL ATELE T neutrophils (absolute) 3.2 x10e3 /uL 1.4-7. 0 Not Available [facility] Department [address] [place], [address], 10/29/2023 06:17:47 10/28/19 24 10/28/2023 CBC WITH DIFFE RENTI AL/PL ATELE T lymphs (absolute) 2.2 x10e3 /uL 0.7-3. 1 Not Available [facility] Department [address] [place], [address], 10/29/2023 06:17:47 10/28/19 24 10/28/2023 CBC WITH DIFFE RENTI AL/PL ATELE T monocytes(ab solute) 0.6 x10e3 /uL 0.1-0. 9 Not Available [facility] Department [address] [place] [address], [address], 10/29/2023 06:17:47 10/28/19 24 10/28/2023 CBC WITH DIFFE RENTI AL/PL ATELE T eos (absolute) 0.1 x10e3 /uL 0.0-0. 4 Not Available [facility] Department [address] [place], [address], 10/29/2023 06:17:47 10/28/19 24 10/28/2023 CBC WITH DIFFE RENTI AL/PL ATELE T baso (absolute) 0.1 x10e3 /uL 0.0-0. 2 Not Available [facility] Department [address] [place], [address], 10/29/2023 06:17:47 10/28/19 24 10/28/2023 CBC WITH DIFFE RENTI AL/PL ATELE T immature granulocytes 0.3 % notest b. Not Available [facility] Department [address] [place], [address], 10/29/2023 06:17:47 10/28/19 24 10/28/2023 CBC WITH DIFFE RENTI AL/PL ATELE T immature grans (abs) 0.0 x10e3 /uL 0.0-0. 1 Not Available [facility] Department [address] [place], [address], 10/29/2023 06:17:47 10/28/19 24 10/28/2023 CBC WITH DIFFE RENTI AL/PL ATELE T NRBC 0 % 0-0 Not Available [facility] Department [address] [place], [address], 10/29/2023 06:17:47 03/24/20 24 03/25/2024 LIPID PANEL cholesterol, total 170 mg/dL 100-19 9 Not Available [facility] ([facility]) [address] [place], [address], 03/25/2024 09:15:42 03/24/20 24 03/25/2024 LIPID PANEL triglyceride s 148 mg/dL 0-149 Not Available [facility] ([facility]) [address] [place], [address], 03/25/2024 09:15:42 03/24/20 24 03/25/2024 LIPID PANEL HDL cholesterol 48 mg/dL >39 Not Available [facility] ([facility]) [address] [place], [address], 03/25/2024 09:15:42 03/24/20 24 03/25/2024 LIPID PANEL VLDL cholesterol kiet 26 mg/dL 5-40 Not Available [facility] ([facility]) [address] [place], [address], 03/25/2024 09:15:42 03/24/20 24 03/25/2024 LIPID PANEL LDL chol calc ([facility]) 96 mg/dL 0-99 Not Available [facility] ([facility]) [address] [place], [address], 03/25/2024 09:15:42 03/24/20 24 03/25/2024 COMP. METAB OLIC PANEL (14) glucose 97 mg/dL 70-99 Not Available [facility] ([facility]) [address] [place], [address], 03/25/2024 09:15:43 03/24/20 24 03/25/2024 COMP. METAB OLIC PANEL (14) BUN 7 mg/dL 8-27 below low normal Not Available [facility] ([facility]) [address] [place], [address], 03/25/2024 09:15:43 03/24/20 24 03/25/2024 COMP. METAB OLIC PANEL (14) creatinine 0.79 mg/dL 0.57-1 .00 Not Available [facility] ([facility]) [address] [place], [address], 03/25/2024 09:15:43 03/24/20 24 03/25/2024 COMP. METAB OLIC PANEL (14) eGFR 82 mL/mi n/1.7 3 >59 Not Available [facility] ([facility]) [address] [place], [address], 03/25/2024 09:15:43 03/24/20 24 03/25/2024 COMP. METAB OLIC PANEL (14) BUN/creatini ne ratio 9 12-28 below low normal Not Available [facility] ([facility]) [address] [place], [address], 03/25/2024 09:15:43 03/24/20 24 03/25/2024 COMP. METAB OLIC PANEL (14) sodium 138 mmol/ L 134-14 4 Not Available [facility] ([facility]) [address] [place], [address], 03/25/2024 09:15:43 03/24/20 24 03/25/2024 COMP. METAB OLIC PANEL (14) potassium 4.5 mmol/ L 3.5-5. 2 Not Available [facility] ([facility]) [address], [place], [address], 03/25/2024 09:15:43 03/24/20 24 03/25/2024 COMP. METAB OLIC PANEL (14) chloride 101 mmol/ L 96-106 Not Available [facility] ([facility]) [address] [place], [address], 03/25/2024 09:15:43 03/24/20 24 03/25/2024 COMP. METAB OLIC PANEL (14) carbon dioxide, total 25 mmol/ L 20-29 Not Available [facility] ([facility]) [address] [place], [address], 03/25/2024 09:15:43 03/24/20 24 03/25/2024 COMP. METAB OLIC PANEL (14) calcium 8.8 mg/dL 8.7-10 .3 Not Available [facility] ([facility]) [address], [place], [address], 03/25/2024 09:15:43 03/24/20 24 03/25/2024 COMP. METAB OLIC PANEL (14) protein, total 6.5 g/dL 6.0-8. 5 Not Available [facility] ([facility]) [address] [place], [address], 03/25/2024 09:15:43 03/24/20 24 03/25/2024 COMP. METAB OLIC PANEL (14) albumin 3.9 g/dL 3.9-4. 9 Not Available [facility] ([facility]) [address] [place], [address], 03/25/2024 09:15:43 03/24/20 24 03/25/2024 COMP. METAB OLIC PANEL (14) globulin, total 2.6 g/dL 1.5-4. 5 Not Available [facility] ([facility]) [address] [facility], [place], [address], 03/25/2024 09:15:43 03/24/20 24 03/25/2024 COMP. METAB OLIC PANEL (14) bilirubin, total 0.2 mg/dL 0.0-1. 2 Not Available [facility] ([facility]) [address] [place], [address], 03/25/2024 09:15:43 03/24/20 24 03/25/2024 COMP. METAB OLIC PANEL (14) alkaline phosphatase 60 IU/L 44-121 Not Available [facility] ([facility]) [address] [place], [address], 03/25/2024 09:15:43 03/24/20 24 03/25/2024 COMP. METAB OLIC PANEL (14) AST (SGOT) 19 IU/L 0-40 Not Available [facility] ([facility]) [address] [facility] [place], [address], 03/25/2024 09:15:43 03/24/20 24 03/25/2024 COMP. METAB OLIC PANEL (14) ALT (SGPT) 18 IU/L 0-32 Not Available [facility] ([facility]) [address] [facility] [place], [address], 03/25/2024 09:15:43 03/24/20 24 03/25/2024 CBC WITH DIFFE RENTI AL/PL ATELE T WBC 7.3 x10e3 /uL 3.4-10 .8 Not Available [facility] ([facility]) [address] [facility] [place], [address], 03/25/2024 09:15:44 03/24/20 24 03/25/2024 CBC WITH DIFFE RENTI AL/PL ATELE T RBC 4.56 x10e6 /uL 3.77-5 .28 Not Available [facility] ([facility]) [address] [facility] [place], [address], 03/25/2024 09:15:44 03/24/20 24 03/25/2024 CBC WITH DIFFE RENTI AL/PL ATELE T hemoglobin 12.2 g/dL 11.1-1 5.9 Not Available [facility] ([facility]) [address] [facility], [place], [address], 03/25/2024 09:15:44 03/24/20 24 03/25/2024 CBC WITH DIFFE RENTI AL/PL ATELE T hematocrit 39.5 % 34.0-4 6.6 Not Available [facility] ([facility]) [address] [place], [address], 03/25/2024 09:15:44 03/24/20 24 03/25/2024 CBC WITH DIFFE RENTI AL/PL ATELE T MCV 87 fL 79-97 Not Available [facility] ([facility]) [address] [place], [address], 03/25/2024 09:15:44 03/24/20 24 03/25/2024 CBC WITH DIFFE RENTI AL/PL ATELE T MCH 26.8 pg 26.6-3 3.0 Not Available [facility] ([facility]) [address] [place], [address], 03/25/2024 09:15:44 03/24/20 24 03/25/2024 CBC WITH DIFFE RENTI AL/PL ATELE T MCHC 30.9 g/dL 31.5-3 5.7 below low normal Not Available [facility] ([facility]) [address] [place], [address], 03/25/2024 09:15:44 03/24/20 24 03/25/2024 CBC WITH DIFFE RENTI AL/PL ATELE T RDW 14.5 % 11.7-1 5.4 Not Available [facility] ([facility]) [address] [place], [address], 03/25/2024 09:15:44 03/24/20 24 03/25/2024 CBC WITH DIFFE RENTI AL/PL ATELE T platelets 326 x10e3 /uL 150-45 0 Not Available [facility] ([facility]) [address] [facility], [place], [address], 03/25/2024 09:15:44 03/24/20 24 03/25/2024 CBC WITH DIFFE RENTI AL/PL ATELE T neutrophils 53 % notest ab. Not Available [facility] ([facility]) [address] [facility], [place], [address], 03/25/2024 09:15:44 03/24/20 24 03/25/2024 CBC WITH DIFFE RENTI AL/PL ATELE T lymphs 34 % notest ab. Not Available [facility] ([facility]) [address] [facility], [place], [address], 03/25/2024 09:15:44 03/24/20 24 03/25/2024 CBC WITH DIFFE RENTI AL/PL ATELE T monocytes 8 % notest ab. Not Available [facility] ([facility]) [address] [facility], [place], [address], 03/25/2024 09:15:44 03/24/20 24 03/25/2024 CBC WITH DIFFE RENTI AL/PL ATELE T eos 2 % notest ab. Not Available [facility] ([facility]) [address] [facility], [place], [address], 03/25/2024 09:15:44 03/24/20 24 03/25/2024 CBC WITH DIFFE RENTI AL/PL ATELE T basos 2 % notest ab. Not Available [facility] ([facility]) [address] [facility], [place], [address], 03/25/2024 09:15:44 03/24/20 24 03/25/2024 CBC WITH DIFFE RENTI AL/PL ATELE T neutrophils (absolute) 3.9 x10e3 /uL 1.4-7. 0 Not Available [facility] ([facility]) [address] [place], [address], 03/25/2024 09:15:44 03/24/20 24 03/25/2024 CBC WITH DIFFE RENTI AL/PL ATELE T lymphs (absolute) 2.5 x10e3 /uL 0.7-3. 1 Not Available [facility] ([facility]) [address] [facility], [place], [address], 03/25/2024 09:15:44 03/24/20 24 03/25/2024 CBC WITH DIFFE RENTI AL/PL ATELE T monocytes(ab solute) 0.6 x10e3 /uL 0.1-0. 9 Not Available [facility] ([facility]) [address] [facility], [place], [address], 03/25/2024 09:15:44 03/24/20 24 03/25/2024 CBC WITH DIFFE RENTI AL/PL ATELE T eos (absolute) 0.2 x10e3 /uL 0.0-0. 4 Not Available [facility] ([facility]) [address] [place], [address], 03/25/2024 09:15:44 03/24/20 24 03/25/2024 CBC WITH DIFFE RENTI AL/PL ATELE T baso (absolute) 0.2 x10e3 /uL 0.0-0. 2 Not Available [facility] ([facility]) [address] [place], [address], 03/25/2024 09:15:44 03/24/20 24 03/25/2024 CBC WITH DIFFE RENTI AL/PL ATELE T immature granulocytes 1 % notest ab. Not Available [facility] ([facility]) [address] [place], [address], 03/25/2024 09:15:44 03/24/20 24 03/25/2024 CBC WITH DIFFE RENTI AL/PL ATELE T immature grans (abs) 0.1 x10e3 /uL 0.0-0. 1 Not Available [facility] ([facility]) [address] [facility], [place], [address], 03/25/2024 09:15:44 07/21/19 25 07/22/2024 LIPID PANEL cholesterol, total 138 mg/dL 100-19 9 Not Available [facility] ([facility]) [address] [place], [address], 07/22/2024 08:25:21 07/21/19 25 07/22/2024 LIPID PANEL triglyceride s 152 mg/dL 0-149 above high normal Not Available [facility] ([facility]) [address] [place], [address], 07/22/2024 08:25:21 07/21/19 25 07/22/2024 LIPID PANEL HDL cholesterol 46 mg/dL >39 Not Available [facility] ([facility]) [address] [place], [address], 07/22/2024 08:25:21 07/21/19 25 07/22/2024 LIPID PANEL VLDL cholesterol kiet 26 mg/dL 5-40 Not Available [facility] ([facility]) [address] [place], [address], 07/22/2024 08:25:21 07/21/19 25 07/22/2024 LIPID PANEL LDL chol calc ([facility]) 66 mg/dL 0-99 Not Available [facility] ([facility]) [address] [place], [address], 07/22/2024 08:25:21 07/21/19 25 07/22/2024 COMP. METAB OLIC PANEL (14) glucose 109 mg/dL 70-99 above high normal Not Available [facility] ([facility]) [address] [facility] [place], [address], 07/22/2024 08:25:22 07/21/19 25 07/22/2024 COMP. METAB OLIC PANEL (14) BUN 8 mg/dL 8-27 Not Available [facility] ([facility]) [address] [place], [address], 07/22/2024 08:25:22 07/21/19 25 07/22/2024 COMP. METAB OLIC PANEL (14) creatinine 0.86 mg/dL 0.57-1 .00 Not Available [facility] ([facility]) [address] [facility] [place], [address], 07/22/2024 08:25:22 07/21/19 25 07/22/2024 COMP. METAB OLIC PANEL (14) eGFR 74 mL/mi n/1.7 3 >59 Not Available [facility] ([facility]) [address] [facility] [place], [address], 07/22/2024 08:25:22 07/21/19 25 07/22/2024 COMP. METAB OLIC PANEL (14) BUN/creatini ne ratio 9 12-28 below low normal Not Available [facility] ([facility]) [address] [facility] [place], [address], 07/22/2024 08:25:22 07/21/19 25 07/22/2024 COMP. METAB OLIC PANEL (14) sodium 137 mmol/ L 134-14 4 Not Available [facility] ([facility]) [address] [facility] [place], [address], 07/22/2024 08:25:22 07/21/19 25 07/22/2024 COMP. METAB OLIC PANEL (14) potassium 4.7 mmol/ L 3.5-5. 2 Not Available [facility] ([facility]) [address] [facility] [place], [address], 07/22/2024 08:25:22 07/21/19 25 07/22/2024 COMP. METAB OLIC PANEL (14) chloride 101 mmol/ L 96-106 Not Available [facility] ([facility]) [address] [facility], [place], [address], 07/22/2024 08:25:22 07/21/19 25 07/22/2024 COMP. METAB OLIC PANEL (14) carbon dioxide, total 25 mmol/ L 20-29 Not Available [facility]
--- OUTSIDE RECORDS SUMMARY | 2024-11-18 09:54 | XMS_ITS | Referral Summary ---
Author Organization [facility] Address [address] [place] [address] Care Team Providers Care Coutierier Name Role Phone Torsten Burnham MD Primary Care Provider Encounters Date Type Department Care Team Description 10/08/2024 Orders Only [facility] [address] [facility] [address] [place] [address] Torsten Cuevas MD 08/28/2024 10:49 AM EARTH OBSERVATIONS CHIEF SCIENTIST - 08/28/2024 11:59 PM EARTH OBSERVATIONS CHIEF SCIENTIST Hospital Encounter [facility] [address] [place] [address] Syncope and collapse Discharge Disposition: Discharge to home or self care from Last 3 Months Allergies Active Allergy Reactions Criticality Noted Date Comments Penicillin V Muscle pain Medium 09/10/2022 Medications aspirin 81 mg chewable tablet Take 1 tablet (81 mg total) by mouth daily 09/04/2018 Active buPROPion SR (WELLBUTRIN SR) 150 mg 12 hr tablet 07/15/2022 Active citalopram (CeleXA) 20 mg tablet 07/15/2022 Active HYDROcodone-cal taminophen (NORCO) 5-325 mg per tablet 08/23/2022 Activ e lisinopriL (PRINIVIL,ZESTR [place]) 10 mg tablet Take 1 tablet (10 mg total) by mouth daily 07/14/2022 Active metoprolol tartrate (LOPRESSOR) 50 mg immediate release tablet 07/15/2022 Acti ve omeprazole (PriLOSEC) 20 mg capsule Take 1 capsule (20 mg total) by mouth daily 12/31/2019 Active rosuvastatin (CRESTOR) 40 mg tablet Take 1 tablet (40 mg total) by mouth daily 10/18/2022 Active melatonin 10 mg tablet Active levETIRAcetam (KEPPRA) 500 mg tablet Take 1 tablet (500 mg total) by mouth 2 (two) times a day 60 tablet 11 10/08/2024 Active Active Problems Problem Noted Date Diagnosed Date Abnormal stress test 09/10/2022 CAD in [place] artery 09/10/2022 Cardiac pacemaker in situ 05/24/2022 SSS (sick sinus syndrome) 05/24/2022 Chest pain, unspecified 10/27/2020 LUO (dyspnea on exertion) 10/27/2020 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 Pacemaker check today unremarkable. Syncope likely d/t dehydration/orthostatic episodes Increase water intake Carefully change positions (let feet dangle, stand for a few seconds before ambulating) Wear compression stockings. Hyperlipidemia 05/22/2016 Overview (09/10/2022): Last Assessment & Plan: Continue with rosuvastatin 40 mg tablet. Healthy eating and activity discussed. Hypertension 05/22/2016 Overview (09/10/2022): Last Assessment & Plan: Blood pressure good today at 116/80 pulse 82 Continue home monitoring, 1 x per week okay, 30 minutes after taking medication and after resting for 10 minutes. Neutral position, feet flat on floor. 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 Never 09/10/2022 Q2: How many drinks containi ng alcohol do you have on a typical day when you are drinking? Patient does not drink Q3: How often do you have si x or more drinks on one occasion? Never 09/10/2022 Personal Safety Answer Date Recorded Have you ever been in or are you currently in a harmful physical or emotional relationship or is someone making you feel afraid or unsafe? Denies 10/14/2022 Comments Unknown Sex and Gender Information Value Date Recorded Sex Assigned at Not on file Legal Sex Female 11:24 PM EARTH OBSERVATIONS CHIEF SCIENTIST Gender Identity Female 09/14/2024 4:12 PM CDT Sexual Orientation Something else 09/14/2024 4: 12 PM CDT Occupation Industry Job Start Date Job End Date retired Not on file Not on file Not on file Last Filed Vital Signs Vital Sign Reading Time Taken Comments Blood Pressure 136/84 08/03/2024 12:47 PM EARTH OBSERVATIONS CHIEF SCIENTIST Pulse 96 08/03/2024 12:47 PM EARTH OBSERVATIONS CHIEF SCIENTIST Temperature 36.7 C (98.1 F) 10/14/2022 4:17 PM CDT Respiratory Rate 22 10/14/2022 4:17 PM CDT Oxygen Saturation 97% 08/03/2024 12: 47 PM EARTH OBSERVATIONS CHIEF SCIENTIST Inhaled Oxygen Concentration - - Weight 113.3 kg (249 lb 12.8 oz) 2024 12:47 PM EARTH OBSERVATIONS CHIEF SCIENTIST Height 167.6 cm (5' 5.98 ) 08/03/2024 1 2:47 PM EARTH OBSERVATIONS CHIEF SCIENTIST Body Mass Index 40.34 08/03/2024 12:47 PM EARTH OBSERVATIONS CHIEF SCIENTIST Plan of Treatment Not on file Medical Devices Implanted Type Area Associate Sales Manager Device Identifier Shelf Expiration Date Model / Serial / Lot Pacemaker Heart Procedures Procedure Name Priority Date/Time Associated Diagnosis Comments CT HEAD WO CONTRAST Schedule GIA, Read Routine (Patient lives out of area) 08/28/2024 11:06 AM EARTH OBSERVATIONS CHIEF SCIENTIST Syncope and collapse from Last 3 Months Results * CT Head WO Contrast (08/28/2024 11:06 AM EARTH OBSERVATIONS CHIEF SCIENTIST) Anatomical Region Laterality Modality Head and Neck N/A Computed Tomogra phy 08/28/2024 11:4 7 AM EARTH OBSERVATIONS CHIEF SCIENTIST Narrative 08/28/2024 11:49 AM EARTH OBSERVATIONS CHIEF SCIENTIST EXAM DESCRIPTION: CT HEAD WO CONTRAST REASON FOR STUDY: Frequent nontraumatic syncopal episodes over unspecified duration. No provided focal neurologic deficits. No provided history of inciting and/or aggravating events. TECHNIQUE: Axial images acquired through the brain without intravenous contrast. Images stored on PACS. Automated exposure control was used as a dose optimization technique for this examination. COMPARISON: No prior relevant imaging available at time of interpretation. FINDINGS: BRAIN: No acute intra-axial hemorrhage. No edema, mass effect, midline shift, or herniation. No evidence of acute territorial ischemia/infarct. No suspicious focal white matter lesions with preservation of the jasso-white junction. EXTRA-AXIAL SPACES: No extra-axial fluid collection. No unenhanced CT evidence of extra-axial mass. CALVARIUM: No acute calvarial fracture. SINUSES/MASTOIDS: Visualized paranasal sinuses clear. Mastoid air cells well-developed and well aerated. ORBITS: No acute abnormality. Ocular lenses and globes normal in conformation and position. OTHER: No other significant abnormality. IMPRESSION: No acute intracranial process. THIS IS AN ELECTRONICALLY VERIFIED FINAL REPORT 08/28/2024 11:49 AM - Electronically signed by Daniele Reynoso M.D. KENJI: KENJI Report ID: [id number] Reading Location: [place] [address] Procedure Note Daniele Reynoso MD - 08/28/2024 EXAM DESCRIPTION: CT HEAD WO CONTRAST REASON FOR STUDY: Frequent nontraumatic syncopal episodes over unspecified duration. No provided focal neurologic deficits. No provided history of inciting and/or aggravating events. TECHNIQUE: Axial images acquired through the brain without intravenous contrast. Images stored on PACS. Automated exposure control was used asa dose optimization technique for this examination. COMPARISON: No prior relevant imaging available at time of interpretation. FINDINGS: BRAIN: No acute intra-axial hemorrhage. No edema, mass effect, midline shift, or herniation. No evidence of acute territorialischemia/infarct. No suspicious focal white matter lesions with preservation of thegray-white junction. EXTRA-AXIAL SPACES: No extra-axial fluid collection. No unenhanced CT evidence of extra-axial mass. CALVARIUM: No acute calvarial fracture. SINUSES/MASTOIDS: Visualized paranasal sinuses clear. Mastoid air cells well-developed and well aerated. ORBITS: No acute abnormality. Ocular lenses and globes normal in conformation and position. OTHER: No other significant abnormality. IMPRESSION: No acute intracranial process. THIS IS AN ELECTRONICALLY VERIFIED FINAL REPORT 08/28/2024 11:49 AM - Electronically signed by Daniele Reynoso M.D. KENJI: KENJI Report ID: [id number] Reading Location: [id number] Torsten Cuevas MD IMG CT PROCEDURES Final Result from Last 3 Months Insurance MEDICARE [facility] [employer] [place] MEDICARE Care Teams Coutierier Relationship Specialty Start Date End Date Torsten Burnham MD PCP - General Internal Medicine 08/13/22
--- OUTSIDE RECORDS SUMMARY | 2024-11-18 09:54 | XMS_ITS | Clinical Summary ---
Author Organization [facility] Address [address] [place] [address] Care Team Providers Care Precision Grinder External Name Role Phone Torsten Burnham MD Primary Care Provider + [phone] Allergies Active Allergy Reactions Criticality Noted Date [...] Date Abnormal stress test 09/10/2022 CAD in [place] artery 09/10/2022 Cardiac pacemaker in situ 05/24/2022 [...] feet flat on floor. 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 [address] [facility] [address] [place] [address] Torsten Cuevas MD 08/28/2024 10:49 AM MACHINE CLOTHING WORKER - 08/28/2024 11:59 PM MACHINE CLOTHING WORKER Hospital Encounter [facility] [address] [place] [address] Syncope and collapse Discharge Disposition: Discharge to home or self care from Last 3 Months Surgical History Surgery Date Site/Laterality Comments CARDIAC PACEMAKER PLACEMENT KNEE SURGERY JOINT REPLACEMENT FL FLUORO GUIDED LUMBAR PUNCTURE 10/14/2022 Right Medical History Medical History Date Comments Hypercholesteremia Hypertension Family History Medical History Relation Name Comments Dementia Father Dementia Mother Relation Name Status Comments Father Mother Social History Tobacco Use Types Packs/Day Years [...] on file Legal Sex Female 11:24 PM MACHINE CLOTHING WORKER Gender Identity Female 09/14/2024 4:12 PM CDT Sexual Orientation Something else 09/14/2024 4: 12 PM CDT Occupation Industry Job Start Date Job End Date retired Not on file Not on file Not on file Obstetrics History Last Filed Vital Signs Vital Sign Reading Time Taken Comments Blood Pressure 136/84 08/03/2024 12:47 PM MACHINE CLOTHING WORKER Pulse 96 08/03/2024 12:47 PM MACHINE CLOTHING WORKER Temperature 36.7 C (98.1 F) 10/14/2022 4:17 PM CDT Respiratory Rate 22 10/14/2022 4:17 PM CDT Oxygen Saturation 97% 08/03/2024 12: 47 PM MACHINE CLOTHING WORKER Inhaled Oxygen Concentration - - Weight 113.3 kg (249 lb 12.8 oz) 2024 12:47 PM MACHINE CLOTHING WORKER Height 167.6 cm (5' 5.98 ) 08/03/2024 1 2:47 PM MACHINE CLOTHING WORKER Body Mass Index 40.34 08/03/2024 12:47 PM MACHINE CLOTHING WORKER Plan of Treatment Health Maintenance Due Date Last Done Comments Breast Cancer Screening-Mammogram 1957 Colon Cancer Screening-Colonoscopy 1955 Depression Screening 1957 Hepatitis C Screening 1957 Osteoporosis Screening-Bone Density Scan 1957 Hepatitis B Screening 1975 Pneumococcal vaccine 65+ (1 of 1 - PCV) 2007 03/26/2024 Well Visit 65+ 2022 Fall Risk Assessment 10/15/2023 10/14/2022 Covid-19 Vaccine ( - 2023-2 5 season) 2024 01/14/2022, 06/20/2021, 09/12/2020 DTaP/Tdap/Td Vaccine (2 - Td or Tdap) 07/23/2034 07/23/2024 Influenza Vaccine Completed 03/24/2024, , 05/30/2021, Additional history exists Zoster Vaccine Completed 07/23/2024, 03/26/2024 Medical Devices Implanted Type Area Sanding Supervisor Device Identifier Shelf Expiration Date Model / Serial / Lot Pacemaker Heart Procedures Procedure Name Priority Date/Time Associated Diagnosis Comments CT HEAD WO CONTRAST Schedule GIA, Read Routine (Patient lives out of area) 08/28/2024 11:06 AM MACHINE CLOTHING WORKER Syncope and collapse from Last 3 Months Results * CT Head WO Contrast (08/28/2024 11:06 AM MACHINE CLOTHING WORKER) Anatomical Region Laterality Modality Head and Neck N/A Computed Tomogra phy 08/28/2024 11:4 7 AM MACHINE CLOTHING WORKER Narrative 08/28/2024 11:49 AM MACHINE CLOTHING WORKER EXAM DESCRIPTION: CT HEAD WO CONTRAST REASON [...] 11:49 AM - Electronically signed by Daniele PHILLIP: KENJI Report ID: [id number] Reading Location: [id number] Procedure Note Daniele Reynoso MD - 08/28/2024 [...] 11:49 AM - Electronically signed by Daniele PHILLIP: KENJI Report ID: [id number] Reading Location: [id number] Torsten Cuevas MD IMG CT PROCEDURES Final Result from Last 3 Months Insurance MEDICARE [employer] [place] [facility] MEDICARE Care Teams Precision Grinder External Relationship Specialty Start Date End Date Torsten Burnham MD PCP - General Internal Medicine 08/13/22
== END 2024-11-18 09:45 | disposition home or self-care (01) ==
PROVIDERS: PCP Internal Medicine; Visit Provider Internal Medicine
DX: M47.817 Spondylosis without myelopathy or radiculopathy, lumbosacral region (principal); M47.816 Spondylosis without myelopathy or radiculopathy, lumbar region; M25.552 Pain in left hip
CPT/HCPCS: 72100; 73502

== ENCOUNTER 2024-12-13 09:49 | Outpatient (CLI) | payer MEDICARE, OTHER, SELFPAY ==
--- NOTE | ~2024-12-13 | MM_ITS ---
EXAMINATION: MM screening ian BI w ange HISTORY: Screening TECHNIQUE: Craniocaudal and mediolateral oblique 3-D tomosynthesis images were obtained and synthetic 2-D images were generated. CAD analysis was submitted and interpreted. COMPARISON: Comparison to multiple prior studies sequentially, with oldest reviewed study dated 04/06. BREAST PARENCHYMAL COMPOSITION: Not dense: There are scattered areas of fibroglandular density. FINDINGS: There is no evidence of suspicious mass, calcification, or architectural distortion to sugg est malignancy in either breast. There has been no suspicious interval change. IMPRESSION: 1. No mammographic evidence of malignancy. 2. Recommend routine screening mammography in one year. BI-RADS Category 1: Negative Reviewed, dictated and finalized at location B.
--- OUTSIDE RECORDS SUMMARY | 2024-12-13 10:44 | XMS_ITS | Clinical Summary ---
Author Organization [facility] Care Team Providers Care Water Resources Program Director Name Role Phone Unavailable Primary Care Provider Unavailabl e Social History Tobacco Use Types Packs/Day Years Used Date Smoking Tobacco: Never Assessed Comments Unknown Sex and Gender Information Value Date Recorded Sex Assigned at Not on file Legal Sex Female 9:55 AM SAW TAILER Gender Identity Not on file Sexual Orientation [...]
--- OUTSIDE RECORDS SUMMARY | 2024-12-13 10:44 | XMS_ITS | CONTINUITY OF CARE DOCUMENT ---
Author Name jess mercado Address Unknown Organization [facility] Address [address] [place] [address] Phone [phone] Care Team Providers Care Point Of Sale Associate Name Role Phone jess mercado Unavailable Unavailable INSURANCE PROVIDERS Payer name Policy type / Coverage type [place] red libertarian ID [facility] [id number]
--- OUTSIDE RECORDS SUMMARY | 2024-12-13 10:44 | XMS_ITS | Clinical Summary ---
Author Organization [facility] Address [address] [place] [address] Care Team Providers Care Stripper Black And White Name Role Phone Torsten Burnham MD Primary Care Provider + [phone] Allergies Active Allergy Reactions Criticality Noted Date Comments Penicillin V Muscle pain Medium 09/10/2022 Medications aspirin 81 mg chewable tablet Take 1 tablet (81 mg total) by mouth daily 9 Active buPROPion SR (WELLBUTRIN SR) 150 mg 12 hr tablet 3 Active citalopram (CeleXA) 20 mg tablet 3 Active HYDROcodone-cal taminophen (NORCO) 5-325 mg per tablet 3 Active lisinopriL (PRINIVIL,ZESTR [place]) 10 mg tablet Take 1 tablet (10 mg total) by mouth daily 3 Active metoprolol tartrate (LOPRESSOR) 50 mg immediate release tablet 3 Active omeprazole (PriLOSEC) 20 mg capsule Take 1 capsule (20 mg total) by mouth daily 0 Active rosuvastatin (CRESTOR) 40 mg tablet Take 1 tablet (40 mg total) by mouth daily 3 Active melatonin 10 mg tablet Active levETIRAcetam (KEPPRA) 1,000 mg tablet Take 1 tablet (1,000 mg total) by mouth 2 (two) times a day 60 tablet 11 5 11/25/19 26 Active levETIRAcetam (KEPPRA) 500 mg tablet Take 1 tablet (500 mg total) by mouth 2 (two) times a day 60 tablet 11 5 11/25/19 25 Discontinu ed(Reorder ) Active Problems Problem Noted Date Diagnosed Date Abnormal stress test 09/10/2022 CAD in [place] artery 09/10/2022 Cardiac pacemaker in situ 05/24/2022 [...] Encounters Date Type Department Care Team Description 11/24/2024 10:45 AM CDT Office Visit [facility] [address] [place] [address] [address] [place] [address] Torsten Cuevas MD Syncope and collapse (Primary Dx) 10/08/2024 Orders Only [facility] [address] [place] [address] [address] [place] [address] Torsten Cuevas MD from Last 3 Months Surgical History Surgery [...] on file Legal Sex Female 11:24 PM POPCORN VENDOR Gender Identity Female 09/14/2024 4:12 PM CDT Sexual Orientation Something else 09/14/2024 4: 12 PM CDT Occupation Industry Job Start Date Job End Date retired Not on file Not on file Not on file Obstetrics History Last Filed Vital Signs Vital Sign Reading Time Taken Comments Blood Pressure 124/62 11/24/2024 10:49 AM CDT Pulse 91 11/24/2024 10:49 AM CDT Temperature 36.7 C (98.1 F) 10/14/2022 4:17 PM CDT Respiratory Rate 22 10/14/2022 4:17 PM CDT Oxygen Saturation 99% 11/24/2024 10:49 AM CDT Inhaled Oxygen Concentration - - Weight 114.3 kg (252 lb) 11/24/2024 10:49 AM CDT Height 165.1 cm (5' 5) 11/24/2024 10:49 AM CDT Body Mass Index 41.93 11/24/2024 10:49 AM CDT Plan of Treatment Health Maintenance Due Date Last Done Comments Breast Cancer Screening-Mammogram 1957 Colon Cancer Screening-Colonoscopy 1957 Depression Screening 1957 Hepatitis C Screening 1957 Osteoporosis Screening-Bone Density Scan 1957 Hepatitis B Screening 1975 Pneumococcal vaccine 65+ (1 of 1 - PCV) 2007 03/26/2024 Well Visit 65+ 2022 Fall Risk Assessment 10/15/2023 10/14/2022 Covid-19 Vaccine (4 - 2023-2 5 season) 2024 01/14/2022, 06/20/2021, 09/12/2020 DTaP/Tdap/Td Vaccine (2 - Td or Tdap) 07/23/2034 07/23/2024 Influenza Vaccine Completed 03/24/2024, , 05/30/2021, Additional history exists Zoster Vaccine Completed 07/23/2024, 03/26/2024 Medical Devices Implanted Type Area Hip Hop Dancer Device Identifier Shelf Expiration Date Model / Serial / Lot Pacemaker Heart Insurance MEDICARE [facility] [place] [facility] [place] MEDICARE Care Teams Stripper Black And White Relationship Specialty Start Date End Date Torsten Burnham MD PCP - General Internal Medicine 08/13/22
--- OUTSIDE RECORDS SUMMARY | 2024-12-13 10:44 | XMS_ITS | Data Portability ---
[facility] Address [address] [place] [address] Care Team Providers Care Agility Instructor Name Role Phone RADHA BURNHAM Primary Care Provider Assessment Encounter Date Assessment [...] we can check out immunizations and screenings Not available 10/28/2023 22:46:23 03/24/2024 03/24/2024 she does have an appointment with Neurology. We will get a flu shot today. Blood work today. CAD anxiety GERD hyperlipidemia syncope have been discussed all questions have been answered to patient's satisfaction follow up [email or web address] Not available 04/03/2024 14:55:52 07/21/2024 07/21/2024 for her recurren t syncope she is going to see Neurology. Healthy lifestyle care instructions. Blood work. Continue current therapy. Follow up 4 months. She has been having syncopal episodes for several years [email or web address] Not available 07/25/2024 16:00:58 11/17/2024 11/17/2024 X-ray left hip x-ray pelvis x-ray lumbar spine again she has had recurrent syncopal episodes this has been fully evaluated by Cardiology and she continues to see Neurology as well also urinalysis [email or web address] Not available 11/30/2024 22:49:43 Plan of Treatment Reminders Order Date Submit Date Provider Last Modified By Organization Details Last Modified Time Details Appointments ANY 15 2024 10:15A M Radha Burnham MD Not available Not available Not available Lab urinalysi s complete, reflex culture 2024 025 [facility], [address], [place], [address], 11/19/2024 06:50:38 CBC w/ auto diff 2024 025 [facility], [address], [place], [address], 07/22/2024 08:25:23 CMP, serum or plasma 2024 025 [facility], [address], [place], [address], 07/22/2024 08:25:22 lipid panel, serum 2024 025 [facility], [address], [place], [address], 07/22/2024 08:25:21 lipid panel, serum 2023 024 [facility], [address], [place], [address], 03/25/2024 09:15:43 CMP, serum or plasma 2023 024 [facility], [address], [place], [address], 03/25/2024 09:15:43 CBC w/ auto diff 2023 024 [facility], [address], [place], [address], 03/25/2024 09:15:44 CBC w/ auto diff 2023 024 [facility], [address] [facility], [address], [place], [address], 10/29/2023 06:17:47 lipid panel, serum 2023 024 [facility], [address] [facility] [address] [facility], [address], [place], [address], 10/29/2023 06:17:45 CMP, serum or plasma 2023 024 [facility], [address] [facility] [facility] [address] [facility], [address], [place], [address], 10/29/2023 06:17:45 magnesium , serum or plasma 2023 024 [facility], [address] [facility] [facility], [address], [place], [address], 10/29/2023 06:17:[address] referral - Please call pt to schedule apt. 2023 024 CORNELIUS Cuevas MD, 4 [facility], [address], [address], 08/05/2024 11:40:06 Procedures None recorded. Surgeries None recorded. Imaging XR, hip, unilatera l, 2 or 3 view 2024 [facility] ([facility]), [address] [place] [address], [address], 11/18/2024 13:44:01 XR, lumbar spine 2024 025 [facility] ([facility]), [address] [place] [address], [address], 11/18/2024 12:00:33 XR, pelvis 2024 025 [facility] ([facility]), [address] [facility] [address], [place], [address], 11/18/2024 13:44:01 electroen cephalogr am 2023 024 [facility] ([facility]), [address] [facility] [address], [place], [address], 11/11/2023 13:25:07 Medication Orders Zepbound 2.5 mg/0.5 mL subcutane ous pen injector 2023 024 [place] [address] [facility], [address], [place], [address], 03/24/2024 11:58:26 Zepbound 5 mg/0.5 mL subcutane ous pen injector 2023 024 [place] [address] [facility] 2425, [address], [place], [address], 03/24/2024 11:58:26 rosuvasta tin 40 mg tablet 2023 024 [place] [address] [facility], [address], [place], [address], 10/28/2023 11:32:22 bupropion HCl SR 150 mg tablet,12 hr sustained -release [address], [address], [place], [address], 10/28/2023 11:32:22 citalopra m 20 mg tablet 2023 024 [place] [address] [facility] [address]25, [address], [place], [address], 10/28/2023 11:32:22 Patient TargetsNo targets recorded. Patient Instructions Encounter Date Encounter Id Patient Instructions Last Modified By Organization Details Last Modified Time 03/24/2024 [id number] A healthy lifestyle: care instructions Not available 03/24/2024 11:58:26 07/21/2024 [id number] A healthy lifestyle: care instructions [email or web address] Not available 07/21/2024 13:31:00 11/17/2024 [id number] A healthy lifestyle: care instructions [email or web address] Not available 11/17/2024 17:28:56 Reason for Referral Neurologist Referral for Syn cope Please call pt to schedule apt. Referring Physician: Radha Burnham, Internal Medicine, Encounter Date: 10/28/2023 Results Created Date Observation Date Name Description Value Unit Range Abnormal Flag Note LastModifiedBy Organization Detail LastModifiedTime 10/28/1910/29/2023 LIPID PANEL cholesterol, total 124 mg/dL 100-19 9 Not Available [facility] [address] [place] [address], [address], 10/29/2023 06:17:45 10/28/1910/29/2023 LIPID PANEL triglyceride s 137 mg/dL 0-149 Not Available [facility] Department [address] [place] [address], [address], 10/29/2023 06:17:45 10/28/1910/29/2023 LIPID PANEL HDL cholesterol 44 mg/dL 40-999 Not Available [facility] Department [address] [place], [address], 10/29/2023 06:17:45 10/28/1910/29/2023 LIPID PANEL VLDL cholesterol kiet 27 mg/dL 5-40 Not Available [facility] Department [address] [place], [address], 10/29/2023 06:17:45 10/28/1910/29/2023 LIPID PANEL LDL chol calc ([facility]) 72 mg/dL 0-99 Not Available [facility] Department [address] [place], [address], 10/29/2023 06:17:45 10/28/1910/29/2023 COMP. METAB OLIC PANEL (14) glucose 92 mg/dL 70-99 Not Available [facility] [address] [place] [address], [address], 10/29/2023 06:17:45 10/28/1910/29/2023 COMP. METAB OLIC PANEL (14) BUN 9 mg/dL 8-27 Not Available [facility] [address] [place] [address], [address], 10/29/2023 06:17:45 10/28/1910/29/2023 COMP. METAB OLIC PANEL (14) creatinine 0.81 mg/dL 0.76-1 .27 Not Available [facility] [address] [place] [address], [address], 10/29/2023 06:17:45 10/28/1910/29/2023 COMP. METAB OLIC PANEL (14) eGFR 80 >=60 Units for eGFR value s are mL/mi n/1.7 3 The eGFR Calcu latio n has not been valid ated for patie nts under the age of 18. If test resul ts are displ ayed for a patie nt under the age of 18, disre shantanu that value . Not Available [facility] [address] [place] [address], [address], 10/29/2023 06:17:45 10/28/1910/29/2023 COMP. METAB OLIC PANEL (14) BUN/creatini ne ratio 11 10-28 Not Available [facility] Department [address] [place] [address], [address], 10/29/2023 06:17:45 10/28/1910/29/2023 COMP. METAB OLIC PANEL (14) sodium 140 mmol/ L 134-14 4 Not Available [facility] [address] [place], [address], 10/29/2023 06:17:45 10/28/1910/29/2023 COMP. METAB OLIC PANEL (14) potassium 5.0 mmol/ L 3.5-5. 2 Not Available [facility] [address] [place], [address], 10/29/2023 06:17:45 10/28/19 24 10/29/2023 COMP. METAB OLIC PANEL (14) chloride 101 mmol/ L 96-106 Not Available [facility] [address] [place] [address], [address], 10/29/2023 06:17:45 10/28/1910/29/2023 COMP. METAB OLIC PANEL (14) carbon dioxide, total 26 mmol/ L 20-29 Not Available [facility] [address] [place] [address], [address], 10/29/2023 06:17:45 10/28/19 24 10/29/2023 COMP. METAB OLIC PANEL (14) calcium 9.7 mg/dL 8.7-10 .3 Not Available [facility] [address] [place] [address], [address], 10/29/2023 06:17:45 10/28/1910/29/2023 COMP. METAB OLIC PANEL (14) protein, total 7.1 g/dL 6.0-8. 5 Not Available [facility] [address] [place], [address], 10/29/2023 06:17:45 10/28/19 24 10/29/2023 COMP. METAB OLIC PANEL (14) albumin 4.1 g/dL 3.8-4. 8 Not Available [facility] [address] [place], [address], 10/29/2023 06:17:45 10/28/19 24 10/29/2023 COMP. METAB OLIC PANEL (14) globulin, total 3.0 g/dL 1.5-4. 5 Not Available [facility] [address] [place] [address], [address], 10/29/2023 06:17:45 10/28/19 24 10/29/2023 COMP. METAB OLIC PANEL (14) A/G ratio 1.0 1.2-2. 2 below low normal Not Available [facility] [address] [place] [address], [address], 10/29/2023 06:17:45 10/28/19 24 10/29/2023 COMP. METAB OLIC PANEL (14) bilirubin, total 0.3 mg/dL 0.0-1. 2 Not Available [facility] [address] [place] [address], [address], 10/29/2023 06:17:45 10/28/19 24 10/29/2023 COMP. METAB OLIC PANEL (14) alkaline phosphatase 69 IU/L 44-121 Not Available [facility] Department [address] [place] [address], [address], 10/29/2023 06:17:45 10/28/19 24 10/29/2023 COMP. METAB OLIC PANEL (14) AST (SGOT) 21 IU/L 0-40 Not Available [facility] Department [address] [place] [address], [address], 10/29/2023 06:17:45 10/28/19 24 10/29/2023 COMP. METAB OLIC PANEL (14) ALT (SGPT) 25 IU/L 0-32 Not Available [facility] [address] [place] [address], [address], 10/29/2023 06:17:45 10/28/19 24 10/29/2023 MAGNE SIUM magnesium 1.8 mg/L 1.6-2. 3 Not Available [facility] [address] [place] [address], [address], 10/29/2023 06:17:46 10/28/19 24 10/28/2023 CBC WITH DIFFE RENTI AL/PL ATELE T WBC 6.2 x10e3 /uL 3.4-10 .8 Not Available [facility] [address] [place], [address], 10/29/2023 06:17:47 10/28/19 24 10/28/2023 CBC WITH DIFFE RENTI AL/PL ATELE T RBC 4.62 x10e6 /uL 3.77-5 .28 Not Available [facility] [address] [place], [address], 10/29/2023 06:17:47 10/28/19 24 10/28/2023 CBC WITH DIFFE RENTI AL/PL ATELE T hemoglobin 12.4 g/dL 11.1-1 5.9 Not Available [facility] [address] [place], [address], 10/29/2023 06:17:47 10/28/19 24 10/28/2023 CBC WITH DIFFE RENTI AL/PL ATELE T hematocrit 40.2 % 34.0-4 6.6 Not Available [facility] [address] [place], [address], 10/29/2023 06:17:47 10/28/19 24 10/28/2023 CBC WITH DIFFE RENTI AL/PL ATELE T MCV 87 fL 79-97 Not Available [facility] [address] [place], [address], 10/29/2023 06:17:47 10/28/19 24 10/28/2023 CBC WITH DIFFE RENTI AL/PL ATELE T MCH 26.8 pg 26.6-3 3.0 Not Available [facility] [address] [place], [address], 10/29/2023 06:17:47 10/28/19 24 10/28/2023 CBC WITH DIFFE RENTI AL/PL ATELE T MCHC 30.8 g/dL 31.5-3 5.7 below low normal Not Available [facility] [address] [place], [address], 10/29/2023 06:17:47 10/28/1910/28/2023 CBC WITH DIFFE RENTI AL/PL ATELE T RDW 14.9 % 11.5-1 4.5 above high normal Not Available [facility] [address] [place], [address], 10/29/2023 06:17:47 10/28/19 24 10/28/2023 CBC WITH DIFFE RENTI AL/PL ATELE T platelets 350 x10e3 /uL 150-45 0 Not Available [facility] [address] [place], [address], 10/29/2023 06:17:47 10/28/19 24 10/28/2023 CBC WITH DIFFE RENTI AL/PL ATELE T neutrophils 52 % notest b. Not Available [facility] [address] [place] [address], [address], 10/29/2023 06:17:47 10/28/19 24 10/28/2023 CBC WITH DIFFE RENTI AL/PL ATELE T lymphs 35 % notest b. Not Available [facility] [address] [place] [address], [address], 10/29/2023 06:17:47 10/28/19 24 10/28/2023 CBC WITH DIFFE RENTI AL/PL ATELE T monocytes 9 % notest b. Not Available [facility] [address] [place], [address], 10/29/2023 06:17:47 10/28/19 24 10/28/2023 CBC WITH DIFFE RENTI AL/PL ATELE T eos 2 % notest b. Not Available [facility] [address] [place], [address], 10/29/2023 06:17:47 10/28/19 24 10/28/2023 CBC WITH DIFFE RENTI AL/PL ATELE T basos 2 % notest b. Not Available [facility] [address] [place], [address], 10/29/2023 06:17:47 10/28/19 24 10/28/2023 CBC WITH DIFFE RENTI AL/PL ATELE T neutrophils (absolute) 3.2 x10e3 /uL 1.4-7. 0 Not Available [facility] [address] [place], [address], 10/29/2023 06:17:47 10/28/1910/28/2023 CBC WITH DIFFE RENTI AL/PL ATELE T lymphs (absolute) 2.2 x10e3 /uL 0.7-3. 1 Not Available [facility] [address] [place], [address], 10/29/2023 06:17:47 10/28/19 24 10/28/2023 CBC WITH DIFFE RENTI AL/PL ATELE T monocytes(ab solute) 0.6 x10e3 /uL 0.1-0. 9 Not Available [facility] [address] [place], [address], 10/29/2023 06:17:47 10/28/19 24 10/28/2023 CBC WITH DIFFE RENTI AL/PL ATELE T eos (absolute) 0.1 x10e3 /uL 0.0-0. 4 Not Available [facility] [address] [place], [address], 10/29/2023 06:17:47 10/28/19 24 10/28/2023 CBC WITH DIFFE RENTI AL/PL ATELE T baso (absolute) 0.1 x10e3 /uL 0.0-0. 2 Not Available [facility] [address] [place], [address], 10/29/2023 06:17:47 10/28/19 24 10/28/2023 CBC WITH DIFFE RENTI AL/PL ATELE T immature granulocytes 0.3 % notest b. Not Available [facility] [address] [place], [address], 10/29/2023 06:17:47 10/28/19 24 10/28/2023 CBC WITH DIFFE RENTI AL/PL ATELE T immature grans (abs) 0.0 x10e3 /uL 0.0-0. 1 Not Available [facility] [address] [place], [address], 10/29/2023 06:17:47 10/28/19 24 10/28/2023 CBC WITH DIFFE RENTI AL/PL ATELE T NRBC 0 % 0-0 Not Available [facility] [address] [place], [address], 10/29/2023 06:17:47 03/24/20 24 03/25/2024 LIPID PANEL cholesterol, total 170 mg/dL 100-19 9 Not Available [facility] ([facility]) [address] [place], [address], 03/25/2024 09:15:42 03/24/20 24 03/25/2024 LIPID PANEL triglyceride s 148 mg/dL 0-149 Not Available [facility] ([facility]) [address] [place], [address], 03/25/2024 09:15:42 03/24/20 24 03/25/2024 LIPID PANEL HDL cholesterol 48 mg/dL >39 Not Available [facility] ([facility]) [address] [place], [address], 03/25/2024 09:15:42 03/24/20 24 03/25/2024 LIPID PANEL VLDL cholesterol kiet 26 mg/dL 5-40 Not Available [facility] ([facility]) [address] [place], [address], 03/25/2024 09:15:42 03/24/20 24 03/25/2024 LIPID PANEL LDL chol calc ([facility]) 96 mg/dL 0-99 Not Available [facility] ([facility]) [address] [place], [address], 03/25/2024 09:15:42 03/24/20 24 03/25/2024 COMP. METAB OLIC PANEL (14) glucose 97 mg/dL 70-99 Not Available [facility] ([facility]) [address] [place], [address], 03/25/2024 09:15:43 03/24/20 24 03/25/2024 COMP. METAB OLIC PANEL (14) BUN 7 mg/dL 8-27 below low normal Not Available [facility] ([facility]) [address] [place], [address], 03/25/2024 09:15:43 03/24/20 24 03/25/2024 COMP. METAB OLIC PANEL (14) creatinine 0.79 mg/dL 0.57-1 .00 Not Available [facility] ([facility]) [address] [place], [address], 03/25/2024 09:15:43 03/24/20 24 03/25/2024 COMP. METAB OLIC PANEL (14) eGFR 82 mL/mi n/1.7 3 >59 Not Available [facility] ([facility]) [address] [place], [address], 03/25/2024 09:15:43 03/24/20 24 03/25/2024 COMP. METAB OLIC PANEL (14) BUN/creatini ne ratio 9 12-28 below low normal Not Available [facility] ([facility]) [address] [place], [address], 03/25/2024 09:15:43 03/24/20 24 03/25/2024 COMP. METAB OLIC PANEL (14) sodium 138 mmol/ L 134-14 4 Not Available [facility] ([facility]) [address] [place], [address], 03/25/2024 09:15:43 03/24/20 24 03/25/2024 COMP. METAB OLIC PANEL (14) potassium 4.5 mmol/ L 3.5-5. 2 Not Available [facility] ([facility]) [address] [place], [address], 03/25/2024 09:15:43 03/24/20 24 03/25/2024 COMP. METAB OLIC PANEL (14) chloride 101 mmol/ L 96-106 Not Available [facility] ([facility]) [address] [place], [address], 03/25/2024 09:15:43 03/24/20 24 03/25/2024 COMP. METAB OLIC PANEL (14) carbon dioxide, total 25 mmol/ L 20-29 Not Available [facility] ([facility]) [address] [place], [address], 03/25/2024 09:15:43 03/24/20 24 03/25/2024 COMP. METAB OLIC PANEL (14) calcium 8.8 mg/dL 8.7-10 .3 Not Available [facility] ([facility]) [address] [facility] [place], [address], 03/25/2024 09:15:43 03/24/20 24 03/25/2024 COMP. METAB OLIC PANEL (14) protein, total 6.5 g/dL 6.0-8. 5 Not Available [facility] ([facility]) [address] [facility] [place], [address], 03/25/2024 09:15:43 03/24/20 24 03/25/2024 COMP. METAB OLIC PANEL (14) albumin 3.9 g/dL 3.9-4. 9 Not Available [facility] ([facility]) [address] [facility], [place], [address], 03/25/2024 09:15:43 03/24/20 24 03/25/2024 COMP. METAB OLIC PANEL (14) globulin, total 2.6 g/dL 1.5-4. 5 Not Available [facility] ([facility]) [address] [facility], [place], [address], 03/25/2024 09:15:43 03/24/20 24 03/25/2024 COMP. METAB OLIC PANEL (14) bilirubin, total 0.2 mg/dL 0.0-1. 2 Not Available [facility] ([facility]) [address] [facility], [place], [address], 03/25/2024 09:15:43 03/24/20 24 03/25/2024 COMP. METAB OLIC PANEL (14) alkaline phosphatase 60 IU/L 44-121 Not Available [facility] ([facility]) [address] [facility], [place], [address], 03/25/2024 09:15:43 03/24/20 24 03/25/2024 COMP. METAB OLIC PANEL (14) AST (SGOT) 19 IU/L 0-40 Not Available [facility] ([facility]) [address] [facility], [place], [address], 03/25/2024 09:15:43 03/24/20 24 03/25/2024 COMP. METAB OLIC PANEL (14) ALT (SGPT) 18 IU/L 0-32 Not Available [facility] ([facility]) [address] [facility], [place], [address], 03/25/2024 09:15:43 03/24/20 24 03/25/2024 CBC WITH DIFFE RENTI AL/PL ATELE T WBC 7.3 x10e3 /uL 3.4-10 .8 Not Available [facility] ([facility]) [address] [place], [address], 03/25/2024 09:15:44 03/24/20 24 03/25/2024 CBC WITH DIFFE RENTI AL/PL ATELE T RBC 4.56 x10e6 /uL 3.77-5 .28 Not Available [facility] ([facility]) [address] [place], [address], 03/25/2024 09:15:44 03/24/20 24 03/25/2024 CBC WITH DIFFE RENTI AL/PL ATELE T hemoglobin 12.2 g/dL 11.1-1 5.9 Not Available [facility] ([facility]) [address] [place], [address], 03/25/2024 09:15:44 03/24/20 24 03/25/2024 CBC WITH DIFFE RENTI AL/PL ATELE T hematocrit 39.5 % 34.0-4 6.6 Not Available [facility] ([facility]) [address] [place], [address], 03/25/2024 09:15:44 03/24/20 24 03/25/2024 CBC WITH DIFFE RENTI AL/PL ATELE T MCV 87 fL 79-97 Not Available [facility] ([facility]) [address] [place], [address], 03/25/2024 09:15:44 03/24/2003/25/2024 CBC WITH DIFFE RENTI AL/PL ATELE T MCH 26.8 pg 26.6-3 3.0 Not Available [facility] ([facility]) [address] [place], [address], 03/25/2024 09:15:44 03/24/20 24 03/25/2024 CBC WITH DIFFE RENTI AL/PL ATELE T MCHC 30.9 g/dL 31.5-3 5.7 below low normal Not Available [facility] ([facility]) [address] [place], [address], 03/25/2024 09:15:44 03/24/20 24 03/25/2024 CBC WITH DIFFE RENTI AL/PL ATELE T RDW 14.5 % 11.7-1 5.4 Not Available [facility] ([facility]) [address] [facility], [place], [address], 03/25/2024 09:15:44 03/24/20 24 03/25/2024 CBC WITH DIFFE RENTI AL/PL ATELE T platelets 326 x10e3 /uL 150-45 0 Not Available [facility] ([facility]) [address] [facility], [place], [address], 03/25/2024 09:15:44 03/24/20 24 03/25/2024 CBC WITH DIFFE RENTI AL/PL ATELE T neutrophils 53 % notest ab. Not Available [facility] ([facility]) [address] [facility], [place], [address], 03/25/2024 09:15:44 03/24/20 24 03/25/2024 CBC WITH DIFFE RENTI AL/PL ATELE T lymphs 34 % notest ab. Not Available [facility] ([facility]) [address] [facility], [place], [address], 03/25/2024 09:15:44 03/24/20 24 03/25/2024 CBC WITH DIFFE RENTI AL/PL ATELE T monocytes 8 % notest ab. Not Available [facility] ([facility]) [address] [facility], [place], [address], 03/25/2024 09:15:44 03/24/20 24 03/25/2024 CBC WITH DIFFE RENTI AL/PL ATELE T eos 2 % notest ab. Not Available [facility] ([facility]) [address] [facility], [place], [address], 03/25/2024 09:15:44 03/24/20 24 03/25/2024 CBC WITH DIFFE RENTI AL/PL ATELE T basos 2 % notest ab. Not Available [facility] ([facility]) [address] [facility], [place], [address], 03/25/2024 09:15:44 03/24/20 24 03/25/2024 CBC WITH DIFFE RENTI AL/PL ATELE T neutrophils (absolute) 3.9 x10e3 /uL 1.4-7. 0 Not Available [facility] ([facility]) [address] [facility], [place], [address], 03/25/2024 09:15:44 03/24/20 24 03/25/2024 CBC WITH DIFFE RENTI AL/PL ATELE T lymphs (absolute) 2.5 x10e3 /uL 0.7-3. 1 Not Available [facility] ([facility]) [address] [facility], [place], [address], 03/25/2024 09:15:44 03/24/20 24 03/25/2024 CBC WITH DIFFE RENTI AL/PL ATELE T monocytes(ab solute) 0.6 x10e3 /uL 0.1-0. 9 Not Available [facility] ([facility]) [address] [facility], [place], [address], 03/25/2024 09:15:44 03/24/20 24 03/25/2024 CBC WITH DIFFE RENTI AL/PL ATELE T eos (absolute) 0.2 x10e3 /uL 0.0-0. 4 Not Available [facility] ([facility]) [address] [place], [address], 03/25/2024 09:15:44 03/24/20 24 03/25/2024 CBC WITH DIFFE RENTI AL/PL ATELE T baso (absolute) 0.2 x10e3 /uL 0.0-0. 2 Not Available [facility] ([facility]) [address] [place], [address], 03/25/2024 09:15:44 03/24/20 24 03/25/2024 CBC WITH DIFFE RENTI AL/PL ATELE T immature granulocytes 1 % notest ab. Not Available [facility] ([facility]) [address] [facility], [place], [address], 03/25/2024 09:15:44 03/24/20 24 03/25/2024 CBC WITH DIFFE RENTI AL/PL ATELE T immature grans (abs) 0.1 x10e3 /uL 0.0-0. 1 Not Available [facility] ([facility]) [address] [place], [address], 03/25/2024 09:15:44 07/21/19 25 07/22/2024 LIPID PANEL cholesterol, total 138 mg/dL 100-19 9 Not Available [facility] ([facility]) [address] [place], [address], 07/22/2024 08:25:21 07/21/19 25 07/22/2024 LIPID PANEL triglyceride s 152 mg/dL 0-149 above high normal Not Available [facility] ([facility]) [address] [place], [address], 07/22/2024 08:25:21 07/21/19 25 07/22/2024 LIPID PANEL HDL cholesterol 46 mg/dL >39 Not Available [facility] ([facility]) [address] [place], [address], 07/22/2024 08:25:21 07/21/19 25 07/22/2024 LIPID PANEL VLDL cholesterol kiet 26 mg/dL 5-40 Not Available [facility] ([facility]) [address] [place], [address], 07/22/2024 08:25:21 07/21/19 25 07/22/2024 LIPID PANEL LDL chol calc ([facility]) 66 mg/dL 0-99 Not Available [facility] ([facility]) [address] [facility] [place], [address], 07/22/2024 08:25:21 07/21/19 25 07/22/2024 COMP. METAB OLIC PANEL (14) glucose 109 mg/dL 70-99 above high normal Not Available [facility] ([facility]) [address] [facility] [place], [address], 07/22/2024 08:25:22 07/21/19 25 07/22/2024 COMP. METAB OLIC PANEL (14) BUN 8 mg/dL 8-27 Not Available [facility] ([facility]) [address] [facility] [place], [address], 07/22/2024 08:25:22 07/21/19 25 07/22/2024 COMP. METAB OLIC PANEL (14) creatinine 0.86 mg/dL 0.57-1 .00 Not Available [facility] ([facility]) [address] [place], [address], 07/22/2024 08:25:22 07/21/19 25 07/22/2024 COMP. METAB OLIC PANEL (14) eGFR 74 mL/mi n/1.7 3 >59 Not Available [facility] ([facility]) [address] [place], [address], 07/22/2024 08:25:22 07/21/19 25 07/22/2024 COMP. METAB OLIC PANEL (14) BUN/creatini ne ratio 9 12-28 below low normal Not Available [facility] ([facility]) [address] [place], [address], 07/22/2024 08:25:22 07/21/19 25 07/22/2024 COMP. METAB OLIC PANEL (14) sodium 137 mmol/ L 134-14 4 Not Available [facility] ([facility]) [address] [place], [address], 07/22/2024 08:25:22 07/21/19 25 07/22/2024 COMP. METAB OLIC PANEL (14) potassium 4.7 mmol/ L 3.5-5. 2 Not Available [facility] ([facility]) [address] [facility], [place], [address], 07/22/2024 08:25:22 07/21/19 25 07/22/2024 COMP. METAB OLIC PANEL (14) chloride 101 mmol/ L 96-106 Not Available [facility] ([facility]) [address] [facility], [place], [address], 07/22/2024 08:25:22 07/21/19 25 07/22/2024 COMP. METAB OLIC PANEL (14) carbon dioxide, total 25 mmol/ L 20-29 Not Available [facility] ([facility]) [address] [facility] [place], [address], 07/22/2024 08:25:22 07/21/19 25 07/22/2024 COMP. METAB OLIC PANEL (14) calcium 9.5 mg/dL 8.7-10 .3 Not Available [facility] ([facility]) [address] [facility] [place], [address], 07/22/2024 08:25:22 07/21/19 25 07/22/2024 COMP. METAB OLIC PANEL (14) protein, total 6.6 g/dL 6.0-8. 5 Not Available [facility] ([facility]) [address] [facility] [place], [address], 07/22/2024 08:25:22 07/21/19 25 07/22/2024 COMP. METAB OLIC PANEL (14) albumin 4.1 g/dL 3.9-4. 9 Not Available [facility] ([facility]) [address] [facility] [place], [address], 07/22/2024 08:25:22 07/21/19 25 07/22/2024 COMP. METAB OLIC PANEL (14) globulin, total 2.5 g/dL 1.5-4. 5 Not Available [facility] ([facility]) [address] [facility], [place], [address], 07/22/2024 08:25:22 07/21/19 25 07/22/2024 COMP. METAB OLIC PANEL (14) bilirubin, total 0.3 mg/dL 0.0-1. 2 Not Available [facility] ([facility]) [address] [facility], [place], [address], 07/22/2024 08:25:22 07/21/19 25 07/22/2024 COMP. METAB OLIC PANEL (14) alkaline phosphatase 60 IU/L 44-121 Not Available [facility] ([facility]) [address] [facility], [place], [address], 07/22/2024 08:25:22 07/21/19 25 07/22/2024 COMP. METAB OLIC PANEL (14) AST (SGOT) 25 IU/L 0-40 Not Available [facility] ([facility]) [address] [facility], [place], [address], 07/22/2024 08:25:22 07/21/19 25 07/22/2024 COMP. METAB OLIC PANEL (14) ALT (SGPT) 22 IU/L 0-32 Not Available [facility] ([facility]) [address] [place], [address], 07/22/2024 08:25:22 07/21/19 25 07/22/2024 CBC WITH DIFFE RENTI AL/PL ATELE T WBC 6.8 x10e3 /uL 3.4-10 .8 Not Available [facility] ([facility]) [address] [place], [address], 07/22/2024 08:25:23 07/21/19 25 07/22/2024 CBC WITH DIFFE RENTI AL/PL ATELE T RBC 4.77 x10e6 /uL 3.77-5 .28 Not Available [facility] ([facility]) [address] [place], [address], 07/22/2024 08:25:23 07/21/19 25 07/22/2024 CBC WITH DIFFE RENTI AL/PL ATELE T hemoglobin 12.7 g/dL 11.1-1 5.9 Not Available [facility] ([facility]) [address] [place], [address], 07/22/2024 08:25:23 07/21/1907/22/2024 CBC WITH DIFFE RENTI AL/PL ATELE T hematocrit 41.4 % 34.0-4 6.6 Not Available [facility] ([facility]) [address] [place], [address], 07/22/2024 08:25:23 07/21/1907/22/2024 CBC WITH DIFFE RENTI AL/PL ATELE T MCV 87 fL 79-97 Not Available [facility] ([facility]) [address] [place], [address], 07/22/2024 08:25:23 07/21/1907/22/2024 CBC WITH DIFFE RENTI AL/PL ATELE T MCH 26.6 pg 26.6-3 3.0 Not Available [facility] ([facility]) [address] [place], [address], 07/22/2024 08:25:23 07/21/1907/22/2024 CBC WITH DIFFE RENTI AL/PL ATELE T MCHC 30.7 g/dL 31.5-3 5.7 below low normal Not Available [facility] ([facility]) [address] [place], [address], 07/22/2024 08:25:23 07/21/1907/22/2024 CBC WITH DIFFE RENTI AL/PL ATELE T RDW 14.0 % 11.7-1 5.4 Not Available [facility] ([facility]) [address] [facility], [place], [address], 07/22/2024 08:25:23 07/21/19 25 07/22/2024 CBC WITH DIFFE RENTI AL/PL ATELE T platelets 288 x10e3 /uL 150-45 0 Not Available [facility] ([facility]) [address] [facility], [place], [address], 07/22/2024 08:25:23 07/21/19 25 07/22/2024 CBC WITH DIFFE RENTI AL/PL ATELE T neutrophils 50 % notest ab. Not Available [facility] ([facility]) [address] [facility], [place], [address], 07/22/2024 08:25:23 07/21/19 25 07/22/2024 CBC WITH DIFFE RENTI AL/PL ATELE T lymphs 37 % notest ab. Not Available [facility] ([facility]) [address] [facility], [place], [address], 07/22/2024 08:25:23 07/21/19 25 07/22/2024 CBC WITH DIFFE RENTI AL/PL ATELE T monocytes 9 % notest ab. Not Available [facility] ([facility]) [address] [facility], [place], [address], 07/22/2024 08:25:23 07/21/19 25 07/22/2024 CBC WITH DIFFE RENTI AL/PL ATELE T eos 2 % notest ab. Not Available [facility] ([facility]) [address] [facility], [place], [address], 07/22/2024 08:25:23 07/21/19 25 07/22/2024 CBC WITH DIFFE RENTI AL/PL ATELE T basos 2 % notest ab. Not Available [facility] ([facility]) [address] [facility], [place], [address], 07/22/2024 08:25:23 07/21/19 25 07/22/2024 CBC WITH DIFFE RENTI AL/PL ATELE T neutrophils (absolute) 3.3 x10e3 /uL 1.4-7. 0 Not Available [facility] ([facility]) [address] [facility], [place], [address], 07/22/2024 08:25:23 07/21/19 25 07/22/2024 CBC WITH DIFFE RENTI AL/PL ATELE T lymphs (absolute) 2.5 x10e3 /uL 0.7-3. 1 Not Available [facility] ([facility]) [address] [facility], [place], [address], 07/22/2024 08:25:23 07/21/19 25 07/22/2024 CBC WITH DIFFE RENTI AL/PL ATELE T monocytes(ab solute) 0.6 x10e3 /uL 0.1-0. 9 Not Available [facility] ([facility]) [address] [facility], [place], [address], 07/22/2024 08:25:23 07/21/1907/22/2024 CBC WITH DIFFE RENTI AL/PL ATELE T eos (absolute) 0.1 x10e3 /uL 0.0-0. 4 Not Available [facility] ([facility]) [address] [facility], [place], [address], 07/22/2024 08:25:23 07/21/19 25 07/22/2024 CBC WITH DIFFE RENTI AL/PL ATELE T baso (absolute) 0.2 x10e3 /uL 0.0-0. 2 Not Available [facility] ([facility]) [address] [facility], [place], [address], 07/22/2024 08:25:23 07/21/19 25 07/22/2024 CBC WITH DIFFE RENTI AL/PL ATELE T immature granulocytes 0 % notest ab. Not Available [facility] ([facility]) [address] [facility], [place], [address], 07/22/2024 08:25:23 07/21/19 25 07/22/2024 CBC WITH DIFFE RENTI AL/PL ATELE T immature grans (abs) 0.0 x10e3 /uL 0.0-0. 1 Not Available [facility] ([facility]) [address] [facility], [place], [address], 07/22/2024 08:25:23 11/18/19 25 11/18/2024 MICRO SCOPI C EXAMI NATIO N WBC >30 /hpf 0-5 abnormal Not Available [facility] ([facility]) [address] [facility], [place], [address], 11/19/2024 06:50:38 11/18/19 25 11/18/2024 MICRO SCOPI C EXAMI NATIO N RBC 3-10 /hpf 0-2 abnormal Not Available [facility] ([facility]) [address] [facility], [place], [address], 11/19/2024 06:50:38 11/18/19 25 11/18/2024 MICRO SCOPI C EXAMI NATIO N epithelial cells (non renal) None seen /hpf 0-10 Not Available [facility] ([facility]) [address] [facility], [place], [address], 11/19/2024 06:50:38 11/18/19 25 11/18/2024 MICRO SCOPI C EXAMI NATIO N casts None seen /lpf nonese en Not Available [facility] ([facility]) [address] [facility], [place], [address], 11/19/2024 06:50:38 11/18/19 25 11/18/2024 MICRO SCOPI C EXAMI NATIO N bacteria None seen nonese en/few Not Available [facility] ([facility]) [address] [facility], [place], [address], 11/19/2024 06:50:38 11/18/19 25 11/18/2024 UA/M W/RFL X CULTU RE, ROUTI NE specific gravity 1.012 1.005- 1.030 Not Available [facility] ([facility]) [address] [facility], [place], [address], 11/19/2024 06:50:38 11/18/19 25 11/18/2024 UA/M W/RFL X CULTU RE, ROUTI NE pH 6.0 5.0-7. 5 Not Available [facility] ([facility]) [address] [facility], [place], [address], 11/19/2024 06:50:38 11/18/19 25 11/18/2024 UA/M W/RFL X CULTU RE, ROUTI NE urine-color YELLOW yellow Not Available [facility] ([facility]) [address] [facility], [place], [address], 11/19/2024 06:50:38 11/18/19 25 11/18/2024 UA/M W/RFL X CULTU RE, ROUTI NE appearance CLEAR clear Not Available [facility] ([facility]) [address] [facility], [place], [address], 11/19/2024 06:50:38 11/18/19 25 11/18/2024 UA/M W/RFL X CULTU RE, ROUTI NE WBC esterase 3+ negati ve abnormal Not Available [facility] ([facility]) [address] [facility], [place], [address], 11/19/2024 06:50:38 11/18/19 25 11/18/2024 UA/M W/RFL X CULTU RE, ROUTI NE protein TRACE negati ve/tra ce Not Available [facility] ([facility]) [address] [facility], [place], [address], 11/19/2024 06:50:38 11/18/19 25 11/18/2024 UA/M W/RFL X CULTU RE, ROUTI NE glucose NEGATI VE negati ve Not Available [facility] ([facility]) [address] [place], [address], 11/19/2024 06:50:38 11/18/19 25 11/18/2024 UA/M W/RFL X CULTU RE, ROUTI NE ketones NEGATI VE negati ve Not Available [facility] ([facility]) [address] [place], [address], 11/19/2024 06:50:38 11/18/19 25 11/18/2024 UA/M W/RFL X CULTU RE, ROUTI NE occult blood TRACE negati ve abnormal Not Available [facility] ([facility]) [address] [place], [address], 11/19/2024 06:50:38 11/18/19 25 11/18/2024 UA/M W/RFL X CULTU RE, ROUTI NE bilirubin NEGATI VE negati ve Not Available [facility] ([facility]) [address] [place], [address], 11/19/2024 06:50:38 11/18/19 25 11/18/2024 UA/M W/RFL X CULTU RE, ROUTI NE urobilinogen ,semi-qn 0.2 mg/dL 0.2-1. 0 Not Available [facility] ([facility]) [address] [place], [address], 11/19/2024 06:50:38 11/18/19 25 11/18/2024 UA/M W/RFL X CULTU RE, ROUTI NE nitrite, urine NEGATI VE negati ve Not Available [facility] ([facility]) [address] [place], [address], 11/19/2024 06:50:38 11/18/19 25 11/18/2024 UA/M W/RFL X CULTU RE, ROUTI NE microscopic examination SEE BELOW: Micro scopi c was indic ated and was perfo rmed. Not Available [facility] ([facility]) [address] [facility], [place], [address], 11/19/2024 06:50:38 11/18/19 25 11/18/2024 UA/M W/RFL X CULTU RE, ROUTI NE urinalysis reflex COMMEN T This speci men has refle xed to a Urine Cultu re. Not Available [facility] ([facility]) [address] [place], [address], 11/19/2024 06:50:38 11/18/19 25 11/19/2024 URINE CULTU RE, ROUTI NE urine culture, routine Final report Not Available [facility] ([facility]) [address] [facility], [place], [address], 11/19/2024 06:50:39 11/18/19 25 11/19/2024 URINE CULTU RE, ROUTI NE result 1 Commen t Mixed uroge nital jeff 10,00 0-25, 000 colon y formi ng units per mL Not Available [facility] ([facility]) [address] [facility], [place], [address], 11/19/2024 06:50:39 11/11/19 24 11/07/2023 elect roenc ephal ogram No observ ation record ed. [facility] [address], [place], [address], 11/12/2023 17:19:01 07/15/19 25 08/18/2023 MAMMO , scree abisai, digit al, bilat eral No observ ation record ed. BARCODE Not Available 2024 19:59:41 11/19/19 25 11/18/2024 XR, hip, unila teral , 2 or 3 view No observ ation record ed. [facility] [address], [place], [address], 11/19/2024 14:48:20 11/19/19 25 11/18/2024 XR, lumba r spine No observ ation record ed. [facility] [address], [place], [address], 11/19/2024 14:48:20 11/19/19 25 11/18/2024 XR, pelvi s No observ ation record ed. [email or web address] Not Available 2024 14:48:19 11/19/19 25 11/18/2024 XR, hip, unila teral , 2 or 3 view No observ ation record ed. [facility] [address] [facility] [address], [place], [address], 11/19/2024 14:48:20 Result Notes None recorded. Problems Name Problem SNOMED Code Status Onset Date Resolution Date Notes Provider Name and Address Organization Details Recorded Time Syncope 694678882 Active 2023 Bryan Avendaño [place] null, [place] - [facility] 4 11:23:20 Coronary atherosclerosi s 920541795 Active 2023 Radha Burnham MD Attn: Neno ramsey,[address] [place], [address], [place] [facility] 5 15:59:15 Hyperlipidemia 59493126 Active 2023 Radha Burnham MD Attn: Neno ramsey,[address] [place], [address], [place] [facility] 5 15:59:15 Anxiety 38606448 Active 2023 Radha Burnham MD Attn: Neno ramsey,[address] [place], [address] [facility] 5 15:59:15 Gastroesophage al reflux disease without esophagitis 887832403 Active 2023 Radha Burnham MD Attn: Neno ramsey,[address] [facility], [place], [address], [place] [facility] 5 15:59:15 Essential hypertension 79960125 Active 2024 Radha Burnham MD Attn: Neno ramsey,[address] [facility], [place], [address], [place] [facility] 5 15:59:15 Problem Notes None recorded. Procedures Surgical History Date Name Laterality Status Provider Name and Address Organization Details Recorded Time 07/07/19 open heart surgery completed Megan Ibarra, [place] [facility] 10/28/2023 10:52:42 Arthroscopic Surgery completed Megan Ibarra [place] [facility] 10/28/2023 10:58:19 Appendectomy completed Megan Ibarra [place] [facility] 10/28/2023 10:58:27 Coronary artery bypass/reop completed Megan Ibarra [place] [facility] 10/28/2023 10:58:37 Knee Surgery completed Megan Ibarra, [facility] [place] [facility] 10/28/2023 10:58:43 hysterectomy completed Megan Ibarra, [facility] [place] [facility] 10/28/2023 10:58:50 Pacemaker completed Megan Ibarra, [place] [facility] 10/28/2023 10:59:00 Imaging Results None recorded. Procedure Notes None recorded. Medical Equipment None Reported. Allergies Allergen ID Allergen Name Allergen Category Reaction Reaction Severity Criticality Documentation Date Start Date Code Code System Note Provider Name and Address Organization Details Recorded Time 544001 Product containin g penicilli n (product) medicatio n other moderate high 10/24/2023 84779 8001 SNOMED musc les tie in knots patie nt repor ts JORGITO Shah null, [place] - [facility] 4 10:49:57 Medications Name Sig Start Date Stop Date Status Note LastModified by Organization Details LastModified Time bupropion HCl SR 150 mg tablet,12 hr sustained-r elease TAKE 1 TABLET BY MOUTH TWICE DAILY active Not Available Not Available No t Available levetiracet am 500 mg tablet TAKE 1 TABLET BY MOUTH TWICE DAILY active Not Available Not Available No t Available citalopram 20 mg tablet TAKE 1 TABLET BY MOUTH ONCE DAILY active Not Available Not Available No t Available cephalexin 500 mg capsule TAKE 1 CAPSULE BY MOUTH THREE TIMES DAILY FOR 5 DAYS 10/23 completed Not Available Not Available Not Available lisinopril 10 mg tablet TAKE 1 TABLET BY MOUTH ONCE DAILY active Not Available Not Available No t Available metoprolol tartrate 50 mg tablet TAKE 1 TABLET BY MOUTH TWICE DAILY active Not Available Not Available No t Available omeprazole 20 mg capsule,del ayed release Take 1 capsule every day by oral route. active Not Available Not Available No t Available Adult Low Dose Aspirin 81 mg tablet,kai yed release Take 1 tablet every day by oral route. active Not Available Not Available No t Available rosuvastati n 40 mg tablet TAKE 1 TABLET BY MOUTH ONCE DAILY active Not Available Not Available No t Available nitrofurant oin monohydrate /macrocryst als 100 mg capsule TAKE 1 CAPSULE BY MOUTH EVERY 12 HOURS FOR 5 DAYS 03/24 completed Not Available Not Available Not Available Paxlovid 300 mg (150 mg x 2)-100 mg tablets in a dose pack TAKE 3 TABLETS TOGETHER (TWO 150 MG NIRMATREL VIR TABLETS AND ONE 100 MG RITONAVIR TABLET) BY MOUTH TWICE DAILY FOR 5 DAYS. 03/24 completed Not Available Not Available Not Available Zepbound 5 mg/0.5 mL subcutaneou s pen injector inject 5mg weekly for 4wks then go to 7.5mg weekly for 4wks 2023 active Not Available Not Available Not Avai lable Zepbound 2.5 mg/0.5 mL subcutaneou s pen injector inject 2.5mg weekly for 4wks then go to 5mg weekly for 4wks 2023 active Not Available Not Available Not Avai lable Vitals Date Recorded Body height Body mass index (BMI) Body weight Heart rate Oxygen saturation Oxygen saturation in Arterial blood by Pulse oximetry Systolic blood pressure Diastolic blood pressure Provider Name and Address Organization Details Last Updated DateTime 5 165.1 cm 41.5 kg/m2 699460. 86 g 100 /min 96 % 96 % 134 mm[Hg] 70 mm[Hg] Marlys Grover [place] - [facility] 5 11:48:54 Date Recorded Body height Body mass index (BMI) Body weight Heart rate Oxygen saturation Oxygen saturation in Arterial blood by Pulse oximetry Systolic blood pressure Diastolic blood pressure Provider Name and Address Organization Details Last Updated DateTime 4 165.1 cm 40.6 kg/m2 826701. 46 g 75 /min 98 % 98 % 122 mm[Hg] 86 mm[Hg] JORGITO Shah [facility] 4 10:56:33 Date Recorded Body height Body mass index (BMI) Body weight Heart rate Oxygen saturation Oxygen saturation in Arterial blood by Pulse oximetry Systolic blood pressure Diastolic blood pressure Provider Name and Address Organization Details Last Updated DateTime 5 165.1 cm 41.7 kg/m2 119298. 25 g 95 /min 96 % 96 % 130 mm[Hg] 68 mm[Hg] Padilla Pacheco MA [facility] 5 15:38:13 Date Recorded Body height Body mass index (BMI) Body weight Heart rate Oxygen saturation Oxygen saturation in Arterial blood by Pulse oximetry Systolic blood pressure Diastolic blood pressure Provider Name and Address Organization Details Last Updated DateTime 4 165.1 cm 42 kg/m2 820364. 43 g 98 /min 97 % 97 % 122 mm[Hg] 68 mm[Hg] Marlys Grover MA [facility] 4 11:24:40 Social History Question Answer Notes LastModified by Organizat ion Details LastModified Time Tobacco Smoking Status Former Smoker quit 10 yrs ago (2013) smoked 5 cigarettes daily x 2 years JORGITO Shah [facility] 10/28/2023 10:53:31 Do You Have An Advance Directive? No Information not available 03/24/2024 Are You Blind Or Do You Have Difficulty Seeing? No Information not available 03/24/2024 What Is Your Level Of Caffeine Consumption? None Information not available 03/24/2024 In The 14 Days Before Symptom Onset, Have You Had Close Contact With A Laboratory-confir med COVID-19 While That Case Was Ill? No Information not available 03/24/2024 In The 14 Days Before Symptom Onset, Have You Had Close Contact With A Person Who Is Under Investigation For COVID-19 While That Person Was Ill? No Information not available 03/24/2024 Have You Been To An Area Known To Be High Risk For COVID-19? No Information not available 03/24/2024 Are You Deaf Or Do You Have Serious Difficulty Hearing? No Information not available 03/24/2024 What Type Of Diet Are You Following? REGULAR Information not available 03/24/2024 Are There Any Guns Present In Your Home? No Information not available 03/24/2024 What Was The Date Of Your Most Recent Tobacco Screening? 07/21/2024 Information not available 07/21/2024 Do You Use Your Seat Belt Or Car Seat Routinely? Yes Information not available 03/24/2024 Do You Have Smoke And Carbon Monoxide Detectors In Your Home? Yes Information not available 03/24/2024 At What Age Did You Start Smoking Tobacco? 52 Information not available 10/28/2023 How Much Tobacco Do You Smoke? 0.25 PPD Information not available 10/28/2023 Do You Use Sunscreen Routinely? Yes Information not available 03/24/2024 Has Tobacco Cessation Counseling Been Provided? No Information not available 03/24/2024 How Many Years Have You Smoked Tobacco? 2 Information not available 10/28/2023 Sex: Female Functional Status Question Answer Note LastModified by Organizat ion Details LastModified Time Do you use any illicit or recreational drugs? No Information not available 03/24/2024 Do you or have you ever used any other forms of tobacco or nicotine? No Information not available 03/24/2024 What is your level of alcohol consumption? None Information not available 03/24/2024 Are you currently employed? No Retired Information not available 03/24/2024 Are you able to care for yourself? Yes Information not available 03/24/2024 What is your exercise level? Occasional Information not available 03/24/2024 Mental Status Question Answer Note LastModified by Organization D etails LastModified Time Do you feel stressed (tense, restless, nervous, or anxious, or unable to sleep at night)? [id number] Information not available 03/24/2024 Family History Relationship Description Onset Age of this Age Resolved Age Notes LastModified by Organization Details LastModified Time Father Heart disease [email or web address] Not available 10/06 10:53:47 Father Dementia [email or web address] Not availa ble 10/28/2023 10:53:54 Mother Dementia [email or web address] Not availa ble 10/28/2023 10:53:54 Brother Malignant tumor of stomach [email or web address] Not available 10/06 10:54:01 Sister Malignant tumor of breast [email or web address] Not available 10/06 10:59:22 Medical History Condition Response Anxiety Disorder Y Muscle, Joint, or Bone Problems Y Acid Reflux (GERD) Y Heart Attack ([place]) Y High Blood Pressure Y Depression Y High Cholesterol Y Gynecological HistoryNo gynecological history recorded. Obstetrics History GPAL:G 0 P 0 0 0 0 Immunizations Vaccine Type Date Status Note Provider Nam e and Address Organization Details Recorded Time Influenza, split virus, quadrivalent, preservative 6 completed AMIRA ShahA [place] [facility] 10/28/2023 10:52:07 Influenza, high-dose, quadrivalent, PF 3 completed AMIRA ShahA [place] [facility] 10/28/2023 10:52:07 COVID-19, mRNA, LNP-S, PF, 100 mcg/0.5mL dose or 50 mcg/0.25mL dose 2 completed JORGITO Shah [place] [facility] 10/28/2023 10:52:07 COVID-19, mRNA, LNP-S, PF, 100 mcg/0.5mL dose or 50 mcg/0.25mL dose 1 completed [place]IT[place] [facility] 10/28/2023 10:52:07 COVID-19 vaccine, vector-nr, [id number], PF, 0.5 mL 1 completed [place]GIT[place] [facility] 10/28/2023 10:52:07 Influenza, split virus, trivalent, preservative 3 completed Megan Ibarra, R[place] [facility] 10/28/2023 10:52:07 Influenza, split virus, trivalent, PF 4 completed Megan Ibarra R[place] [facility] 10/28/2023 10:52:07 Influenza, split virus, quadrivalent, PF 9 completed Megan Ibarra, [place] [facility] 10/28/2023 10:52:07 Influenza, split virus, quadrivalent, PF 8 completed Megan Ibarra, [place] [facility] 10/28/2023 10:52:07 Influenza, split virus, quadrivalent, PF 6 completed Megan Ibarra [place] [facility] 10/28/2023 10:52:07 Influenza, split virus, quadrivalent, PF 2 completed Megan Ibarra R[place] [facility] 10/28/2023 10:52:07 Influenza, split virus, quadrivalent, PF 1 completed Megan [place]barra [place] [facility] 10/28/2023 10:52:07 Influenza, split virus, quadrivalent, PF 5 completed [place]barra [place] [facility] 10/28/2023 10:52:07 SARS-COV-2 (COVID-19) vaccine, UNSPECIFIED 4 completed Padilla Pache[place] [facility] 11/17/2024 15:32:10 pneumococcal, unspecified formulation 4 completed Bryan Avenda[place] [facility] 03/29/2024 16:09:08 Respiratory syncytial virus (RSV) vaccine, unspecified 4 completed Padilla Pacheco [place] [facility] 11/17/2024 15:32:10 zoster recombinant 4 completed Padilla Pacheco [place] [facility] 11/17/2024 15:32:10 zoster recombinant 5 completed Jesenia Yu [place] [facility] 07/27/2024 09:21:15 Tdap 5 completed Bryan Avenda[place] [facility] 07/28/2024 09:20:28 Influenza, high-dose, trivalent, PF 4 completed Radha Burnham MD Attn: [address] [facility], [place], [address], [place] [facility] 04/03/2024 14:54:15 Past Encounters Encounter ID Performer Location Encounter Start Date Encounter Closed Date Diagnosis/Indication Diagnosis SNOMED-CT Code Diagnosis ICD10 Code Diagnosis Note [id number] Rad[facility] Burn[facility] [address] [place] [phone] 10/28/2023 10:36:03 10/28/2023 11:28:04 Renewal of prescription 575561615 Z76.0 Syncope 884621276 R55 Coronary atherosclerosis 501881155 I25.10 Hyperlipidemia 83002475 E78.5 Anxiety 28774897 F41.9 Gastroesop hageal reflux disease without esophagitis 312598607 K21.9 Long-term drug therapy 846942707 Z79.899 Permanent cardiac pacemaker [id number] 59692 Z95.0 [id number] Radha Burnham MD [facility] [facility] ([facility] Med[facility] [address] [place] [address] [phone] 03/24/2024 10:57:53 03/24/2024 12:05:20 Morbid obesity 629401915 E66.01 Administra tion of influenza vaccine 70976908 Z23 Essential hypertension 98650031 I10 Hyperlipidemia 56710224 E78.5 Gastroesop hageal reflux disease without esophagitis 721274595 K21.9 Coronary atherosclerosis 258232481 I25.10 Anxiety 16766607 F41.9 Syncope 042715144 R55 [id number] Radha Burnham MD [facility] (Adult Med) [address] [place] [address] [phone] 07/21/2024 11:38:54 07/21/2024 12:14:33 Body mass index 30+ - obesity 886418981 Z68.41 Obesity 749497207 E66.9 Hyperlipidemia 46173788 E78.5 Essential hypertension 10901096 I10 Coronary atherosclerosis 830389999 I25.10 Anxiety 77738460 F41.9 Gastroesop hageal reflux disease without esophagitis 917721262 K21.9 Syncope 392245959 R55 [id number] Radha Burnham MD [facility] (Adult Med) [address] [place] [address] [phone] 11/17/2024 15:16:19 11/17/2024 16:12:14 Body mass index 40+ - severely obese 014849343 Z68.41 Obese class I [id number] 11189 E66.811 Traumatic injury 1396377 04 T14.90XA Pain of hip region 41298 002 M25.552 Dysuria 39624316 R30.0 Health Concerns Section Related Observation LastModified by Organization Detai ls LastModified Time None Recorded Concern Status LastModified by Organization Details LastModified Time None Recorded Advance Directives Directive N: Payers Encounter Date Sequence Insurance Name Policy Number Policy Jose Covered Member ID Jose Member ID Guarantor Name 10/28/2023 2 [employer] [place] [employer] (MEDICARE SUPPLEMENT) Cary Salvador [id number] Cary Salvador 10/28/2023 1 [place] Cary Salvador [id number] Cary Salvador 03/24/2024 2 [employer] [place] [employer] (MEDICARE SUPPLE[place]) Cary Salvador [id number] Cary Salvador 03/24/2024 1 [place] Cary Salvador [id number] Cary Aslvador 07/21/2024 2 [employer] [place] [employer] (MEDICARE [place]PPLE[place]) Cary Salvador [id number] Cary Salvador 07/21/2024 1 [place] Cary Salvador [id number] Cary Salvador 11/17/2024 2 [employer] [place] [employer] (MEDICARE SUPPLE[place]) Cary Salvador [id number] Cary Salvador 11/17/2024 1 [place] Cary Salvador [id number] 4 Cary Salvador Notes Date Note Type Note Provider Name and Address Organization Details Recorded Time 10/28/2023 text/html 68-year-old with a history of hypertension anxiety depression CAD status post CABG GERD vasodepressive syncope necessitating a pacemaker and degenerative arthritis comes in to follow-up on her medical problems she had a couple of other episodes of syncope contacted her registered nurse cardiac they interrogated her pacemaker no arrhythmias however they did not say anything but go see her PCP and get your blood pressure checked according to the patient Radha Burnham MD Attn: Accounting,[address] [facility], [place], [address], [place] [facility] 10/28/2023 22:46:42 03/24/2024 text/html another syncopal episode cardiology keeps telling her that it is not her heart. She would like to try something for obesity GERD has been stable dyslipidemia trying to follow a low-fat diet hypertension no headache no dizziness. CAD no chest pain or shortness fo Radha Burnham MD Attn: Accounting, [address] [facility], [place], [address], [place] [facility] 04/03/2024 14:56:08 07/21/2024 text/html CAD no chest bryn n anxiety has been high but stable no SI or HI GERD no nausea vomiting. Obesity needs help with losing some weight Radha Burnham MD Attn: Accounting, [address] [place], [address], [place] [facility] 07/25/2024 16:01:28 11/17/2024 text/html Syncopal episode hip pain pelvic pain walking all right she has had multiple and she has been seen by Cardiology and follow up by Neurology Radha Burnham MD Attn: Accounting, [address] [facility], [place], [address], [place] [facility] 11/30/2024 22:50:04 OBGyn Episode No OBEpisode recorded.
--- OUTSIDE RECORDS SUMMARY | 2024-12-13 10:44 | XMS_ITS | Clinical Summary ---
Author Organization [facility] [employer] Address [address] [place] [address] Care Team Providers Care Pit Worker Power Shovel Name Role Phone Torsten Burnham MD Primary Care Provider [phone] Source Comments [facility] [employer],non-owned Affiliates and Associated Physician Practices is amultiple site organization consisting of ambulatory clinics and hospital sitesin [place], [place], [place] and [place]. This disclosure is being madepursuant to the Care Everywhere program and may not contain all information available regarding this patient. Last updated 18.[facility] [employer] Allergies Active Allergy Reactions Criticality Noted Date [...] by mouth once daily 100 tablet 4 09/04/2018 Active buPROPion SR 12hr (WELLBUTRIN-SR) 150 MG tablet Take 1 (one) tablet by mouth 2 times daily 0 03/10/2019 Active citalopram (CELEXA) 10 MG tablet Take 1 (one) tablet by mouth once daily 3 02/02/2019 Active omeprazole (PRILOSEC) 20 MG capsuleIndicati ons:Essential hypertension,Mi xed hyperlipidemia, Vasovagal syncope,S/P CABG x 2,CAD in [place] artery,Abnormal stress test Take 1 (one) capsule by mouth once daily 30 capsule 5 12/31/2019 Active metoprolol tartrate IR (Lopressor) 50 MG tabletIndicatio ns:Essential hypertension,S/ P CABG x 2,CAD in [place] artery Take 1 tablet by mouth twice daily 180 tablet 09/16/2024 Active lisinopril (Prinivil; Zestril) 10 MG tablet Take 1 (one) tablet by mouth once daily 90 tablet 3 10/28/2024 Active levETIRAcetam (Keppra) 500 MG tablet Take 1 (one) tablet by mouth 2 times daily Active Active Problems Problem Noted Date Diagnosed [...] Healthy eating and activity discussed. CAD in [place] artery Abnormal stress test Resolved Problems Problem Noted Date Diagnosed Date Resolved Date Primary osteoarthritis of right knee 04/02/2019 Encounters Date Type Department Care Team Description 11/11/2024 11:00 AM CDT Office Visit [facility] Physician [facility] - Cardiology [address] [facility], [address] [phone] Tomas Benavides MD Vasovagal syncope (Primary Dx) 11/11/2024 Travel 10/28/2024 Refill [facility] Physician [facility] - Cardiology [facility] [address] [facility], [address] [phone] Cody Perez, CLINICAL SERVICES PROFESSIONAL REFILL 10/27/2024 Telephone [facility] Cardiology [address] [place] [address], [address] [phone] Yves Burks Refill Request 10/12/2024 Refill [facility] Physician [facility] - Cardiology [address] [place] [address], [address] [phone] Nubia Cedillo APRN-MERCERIZER MACHINE OPERATOR Refill Request 09/16/2024 Refill [facility] Physician [facility] Cardiology [address] [facility], [address] [phone] uNbia Cedillo APRN-MERCERIZER MACHINE OPERATOR Refill Request 09/13/2024 10:40 AM CDT Office Visit [facility] - Cardiology [address] [place] [address], [address] [phone] Josefina Carrillo MD CAD in bo[place] artery (Primary Dx); Cardiac pacemaker in situ; S/P CABG x 2; Primary hypertension; Mixed hyperlipidemia; Syncope, unspecified syncope type 09/13/2024 9:00 AM CDT Ancillary Procedure [facility] Physician [facility] - Echosonography [address] [place] [address], [address] [phone] Stable angina pectoris 09/13/2024 Travel from Last 3 Months Immunizations Immunization Administration [...] CDT Respiratory Rate 18 07/19/2024 3:36 PM NEUROBIOLOGIST Oxygen Saturation 97% 11/11/2024 11:09 AM CDT Inhaled Oxygen Concentration 40% 11/02/2018 1 :13 PM CDT Weight 114.3 kg (252 lb) 11/11/2024 11:09 AM CDT Height 167.6 cm (5' 6) 11/11/2024 11:09 AM CDT Body Mass Index 40.67 11/11/2024 11:09 AM CDT Plan of Treatment Upcoming Encounters Date Type Department Care Team (Late st Contact Info) Description 03/08/2025 1:10 AM CDT [facility], [address] [phone] 09/12/2025 10:20 AM CDT Office Visit [facility] - Cardiology [facility], [address] [phone] Josefina Carrillo MD [address] [facility] [address] [place] [phone] 11/14/2025 1:00 PM CDT Office Visit [facility] - Cardiology [address] [facility], [facility] [address] [place] [address] Tomas Benavides MD [address] [facility], [facility] [address] [place] [address] Health Maintenance Due Date Last Done Comments [...] 60-74 years 1-dose series) 2017 COVID-19 VACCINE ( season) 2024 01/14/2022, 06/20/2021, 09/12/2020 DEPRESSION SCREENING [...] this topic Medical Devices Implanted Type Area Corporate Associate Device Identifier Shelf Expiration Date Model / Serial / Lot Cmpnt Fem Kn Rt 6 Crcte Rtn [employer] Implanted:Qty: 1 on 05/20/2016 by Neil Ibrahim MD at [facility] Right: Knee [employer] 07/18/2025 [id number] / / [id number] Ins Tib 5-6 9mm Kn Xlpe Cr Hi Flxn Implanted:Qty: 1 on 05/20/2016 by Neil Ibrahim MD at [facility] Right: Knee [employer] 01/08/2026 [id number] / / [id number] Legion Por Pope Tib Base R Sz 5 Implanted:Qty: 1 on 05/20/2016 by Neil Ibrahim MD at [facility] Right: Knee [employer] 03/25/2025 [id number] / / [id number] Stem Tib 55mm 18mm Prfx Mtphsl Kn Implanted:Qty: 1 on 05/20/2016 by Neil Ibrahim MD at [facility] Right: Knee [employer] 02/06/2026 [id number] / / [id number] Screw Bsplt 20mm 6.5mm Gns2 Kn Tib Por Implanted:Qty: 2 on 05/20/2016 by Neil Ibrahim MD at [facility] Right: Knee [employer] 11/10/2025 [id number] / / [id number] Screw Bsplt 30mm 6.5mm Gns2 Kn Tib Por Implanted:Qty: 1 on 05/20/2016 by Neil Ibrahim MD at [facility] Right: Knee [employer] 11/05/2025 [id number] / / [id number] Screw Bsplt 30mm 6.5mm Gns2 Kn Tib Por Implanted:Qty: 1 on 05/20/2016 by Neil Ibrahim MD at [facility] Right: Knee [employer] 08/18/2025 [id number] / / [id number] Hardik Basic Rafi Excludes Agc Kn Implanted:Qty: 1 on 05/20/2016 by Neil Ibrahim MD at [facility] [employer] BILL ONLY BASIC RAFI EXCLUDES AGC KN SNOR / / Pacemkr [employer] - [id number] Implanted:Qty: 1 on 01/21/2023 by Tomas Benavides MD at [facility] [employer] 06/03/2024 [id number] / [id number] / [id number] Procedures Procedure Name Priority Date/Time Associated Diagnosis Comments [place] PM/ICD REMOTE TECH SERV Routine 09/13/2024 11:30 PM CDT SSS (sick sinus syndrome) [place] PM DEVICE INTERROGATE REMOTE Routine 09/13/2024 11:30 PM CDT SSS (sick sinus syndrome) ECHO COMPLETE W CONTRAST Routine 09/13/2024 9:49 AM CDT Stable angina pectoris BASIC METABOLIC PANEL (CALCIUM TOTAL) Routine 01/21/2023 6:24 AM CDT Pacemaker end of life SSS (sick sinus syndrome) from Last 3 Months or Most Recently Relevant to Health Maintenance Results * [place] PM DEVICE INTERROGATE REMOTE, [place] PM/ICD REMOTE TECH SERV (09/13/2024 11:30 PM [...] LVOT pk grad 3.806 mmHg [facility] LVOT pk michel 97.543 cm/s SSM CV F UJI PACS LVOT VTI 18.949 cm SSM CV [facility] I PACS RVIDd 3.879 cm SSM CV [facility] I PACS RVOT pk michel 41.437 cm/s SSM CV F UJI PACS RVOT VTI 7.827 cm SSM CV [facility] I PACS AV area pk michel 1.713 cm [facility] AV area cont VTI 2.044 cm [facility] P[facility] AV pk grad 11.648 mmHg SSM CV FU JI PACS AV mn grad 6.862 mmHg SSM CV FU JI PACS AV pk michel 170.645 cm/s SSM CV [facility] I PACS AV VTI 27.783 cm SSM CV [facility] I PACS MV A pk michel 91.526 cm/s SSM CV F UJI PACS MV E pk michel 88.885 cm/s SSM CV F UJI PACS MV mn grad 2.266 mmHg SSM CV FU JI PACS MV VTI 20.67 cm SSM CV [facility] I PACS PV pk michel 98.24 cm/s [...] 7:59 AM Patient Status: O Study Site: [facility] Primary Location: [facility] EStudy Info Exam Type: ECHO COMPLETE W CONTRAST [...] Physician: Josefina Carrillo Ordering Provider: Josefina Carrillo Social Service Assistant: Patricia Paredes Left Ventricle The left ventricular [...] 7:59 AM Patient Status: O Study Site: [facility] Primary Location: [facility] Info Exam Type: ECHO COMPLETE W CONTRAST Indications I20.89 - Stable angina pectoris (HCC) Procedure(s) * A complete 2D, color Doppler, spectral Doppler, and M-Modetransthoracic echocardiogram was performed. * An Ultrasound Enhancing Agent (UEA) was utilized to enhanceendocardial definition and opacify the left ventricle. Contrast/Agitated Saline Contrast / Saline: Definity Amount: 0.50 ml Staff Referring Physician: Josefina Carrillo Ordering Provider: Josefina Carrillo Social Service Assistant: Patricia Paredes Left Ventricle The left ventricular [...] estimated right atrial pressure of 3mmHg. Pericardium/Pleural There is no pericardial effusion. Aorta The ascending aorta is normal in size measuring 3.5 cm with an index of1.5 cm/m2. The aortic root at the sinus [...] Natalia Luque MD on 09/13/2024 11:19 AM Josefina Carrillo MD ECHO CUPID Final Result * (ABNORMAL) BASIC METABOLIC PANEL (CALCIUM TOTAL) (01/21/2023 6:24 AM CDT) BUN 8 7 - 26 mg/dL 01/21/2023 7:28 AM [facility] Creatinine 0.86 0.56 - 0.96 mg/dL 01/21/2023 7:28 AM [facility] Sodium 139 136 - 145 mmol/L 01/21/2023 7:28 AM [facility] Potassium 4.0 3.5 - 4.5 mmol/L 01/21/2023 7:28 AM [facility] Chloride 105 98 - 107 mmol/L 01/21/2023 7:28 AM [facility] CO2 24 22 - 29 mmol/L 01/21/2023 7:28 AM [facility] Glucose 109 70 - 115 mg/dL 01/21/2023 7:28 AM [facility] Calcium 9.0 8.4 - 10.2 mg/dL 01/21/2023 7:28 AM [facility] Anion Gap 14 8 - 18 01/21/2023 7:28 AM [facility] BUN/Creatinine Ratio 9 7 - 23 01/21/2023 7:28 AM [facility] Osmolality Calculated 287 270 - 300 mOsm/kg 01/21/2023 7:28 AM [facility] eGFR by CKD-EPI 75(L) >=90 mL/min/1.7 3 m2 01/21/2023 7:28 AM [facility] Blood BLOOD SPECIMEN / Unknown Venipuncture / Unknown 01/21/2023 6:24 AM CDT 01/21/2023 6:38 AM CDT Tomas Benavides MD LAB - CHEMISTRY ORDERABLES Final Result [facility] [address] [place] [address], [facility] [phone] from Last 3 Months or Most Recently Relevant to Health Maintenance Insurance MEDICARE [employer]ICARE [employer] Advance Directives * Full Code (Latest Code Status on File) Date Activated Date Inactivated Comments 11/02/2018 12:00 PM 11/06/2018 3:07 PM * Full Code Date Activated Date Inactivated Comments 05/20/2016 5:22 PM 05/22/2016 1:26 PM Care Teams Pit Worker Power Shovel Relationship Specialty Start Date End Date Torsten Burnham MD PCP - General Internal Medicine 03/21/16
== END 2024-12-13 09:50 | disposition home or self-care (01) ==
PROVIDERS: PCP Internal Medicine; Visit Provider Internal Medicine
DX: Z12.31 Encounter for screening mammogram for malignant neoplasm of breast (principal)
CPT/HCPCS: 77063; 77067